=== PATIENT | female | born 1950 | race Caucasian/White ===

== ENCOUNTER 2017-02-15 19:44 | Inpatient (IN) | payer MEDICARE, MEDICAID ==
[~2017-02-15] VITALS: Ht 175.3 cm; Wt 65.7 kg
[2017-02-15] MEDS ORDERED: SOD CHLORIDE 0.9% 1,000 ML IV STA (21:06)
[2017-02-15] MEDS ORDERED: ONDANSETRON 4 MG INJ IV STA (21:06)
--- NOTE | 2017-02-15 21:09 | ERA ---
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 She reports having epigastric and chest pain and back pain during vomiting, but denies any pain in the absence of vomiting. She denies constipation or diarrhea. She denies fever. She denies dysuria. She denies headache.She states that she does not have complete kidney failure, but is on dialysis for kidney protection. Her last dialysis was 5 days ago. ROS All systems reviewed and are negative except as per history of present illness. Medications Home Meds Reported Medications Ferrous Sulfate (Iron) 325 Mg Capsule.er, 325 MG PO DAILY, CAP 02/15/17 Ondansetron Hcl* (Zofran*) 4 Mg Tablet, 4 MG PO Q6H Y for NAUSEA AND OR VOMITING , TAB 02/15/17 Tizanidine Hcl* (Tizanidine Hcl*) 4 Mg Capsule, 4 MG PO DAILY Y for SPASTICITY, CAP 02/15/17 Cinacalcet* (Sensipar*) 60 Mg Tablet, 60 MG PO DAILY, TAB 02/15/17 Risperidone* (Risperdal*) 0.25 Mg Tablet, 0.25 MG PO QHS, TAB 02/15/17 Sevelamer Carbonate* (Renvela*) 800 Mg Tablet, 0.8 GM PO WITH MEALS, TAB 02/15/17 Multivit/Ca Carb/B Cmplx/Fa* (Chrissy-Yvonne*) 1 Tab Tab, 1 TAB PO DAILY, TAB 02/15/17 Protein Supplement (Promod) 946 Ml Liquid, 30 ML PO TID 02/15/17 Folic Acid* (Folic Acid*) 1 Mg Tablet, 1 MG PO DAILY, TAB 02/15/17 Docusate Sodium* (Docusate Sodium*) 100 Mg Capsule, 100 MG PO QHS, #30 CAP 02/15/17 Aspirin* (Aspirin* EC) 81 Mg Tablet.dr, 81 MG PO DAILY, TAB 02/15/17 Acetaminophen* (Acetaminophen*) 650 Mg Tablet, 650 MG PO Q6H Y for PAIN, #30 TAB FOR TEMP MORE THAN 100 02/15/17 Allergies Allergies: Coded Allergies: No Known Allergy (Unverified , 02/15/17) PMhx/Soc Past medical history: Renal insufficiency, solitary kidney Past surgical history: Exploratory laparotomy at age 1 Social history: Denies tobacco, alcohol or illicit drugs. History of Surgery: Yes (dialysis shunt LUE, kidney surgery infancy) Anesthesia Reaction: No Hx Neurological Disorder: Yes (encephelopathy NOS) Hx Cardiac Disorders: Yes (HTN) Hx Psychiatric Problems: Yes (psychosis NOS, , ) Hx Alcohol Use: No Hx Substance Use: No Hx Tobacco Use: No Smoking Status: Unknown if ever smoked FmHx Family History: No coronary disease, No diabetes Physical Exam Vitals Vital Signs Date Time Temp Pulse Resp B/P Pulse Ox O2 Delivery O2 Flow Rate FiO2 02/15/17 20:18 98.6 106 20 134/71 99 Physical Exam Const: Alert, no acute distress Head: Atraumatic Eyes: Normal Conjunctiva, No pallor, no icterus ENT: Normal External Ears, Nose and Mouth. Mucous membranes moist Neck: Full range of motion..~ No meningismus. Resp: Clear to auscultation bilaterally, No wheezes, no rales Cardio: Tachycardia, regular rhythm, no murmurs Abd: Soft, non tender, non distended. Skin: No petechiae or rashes, Diminished skin turgor Back: No midline or flank tenderness Ext: No cyanosis, or edema Neur: Awake and alert, Cranial nerves II through XII intact bilaterally, strength and sensation full in 4 extremities. Psych: Normal Mood and Affect Result Diagram: 02/15/17 2100 02/15/17 2100 Results 24 hrs Laboratory Tests Test 02/15/17 21:00 02/15/17 21:18 White Blood Count 9.310^3/ul Red Blood Count 2.3910^6/ul Hemoglobin 8.2g/dl Hematocrit 25.3% Mean Corpuscular Volume 105.9fl Mean Corpuscular Hemoglobin 34.3pg Mean Corpuscular Hemoglobin Concent 32.4g/dl Red Cell Distribution Width 15.2% Platelet Count 52625^3/UL Mean Platelet Volume 12.1fl Neutrophils % 76.6% Lymphocytes % 16.2% Monocytes % 6.3% Eosinophils % 0.4% Basophils % 0.1% Nucleated Red Blood Cells % 0.0/100WBC Neutrophils # (Manual) 7.110^3/ul Lymphocytes # 1.510^3/ul Monocytes # 0.610^3/ul Eosinophils # 0.010^3/ul Basophils # 0.010^3/ul Nucleated Red Blood Cells # 0.010^3/ul Sodium Level 136mmol/L Potassium Level 5.5mmol/L Chloride Level 96mmol/L Carbon Dioxide Level 26mmol/L Anion Gap 20 Blood Urea Nitrogen 71mg/dl Creatinine 7.45mg/dl Glucose Level 93mg/dl Lactic Acid Level 2.1mmol/L Calcium Level 9.5mg/dl Total Bilirubin 0.3mg/dl Direct Bilirubin 0.00mg/dl Indirect Bilirubin 0.3mg/dl Aspartate Amino Transf (AST/SGOT) 27IU/L Alanine Aminotransferase (ALT/SGPT) 27IU/L Alkaline Phosphatase 772IU/L Troponin I 1.010ng/ml Total Protein 5.9g/dl Albumin 3.6g/dl Globulin 2.30g/dl Albumin/Globulin Ratio 1.56 Lipase 266U/L Urine Color YELLOW Urine Clarity SLIGHTLY CLOUDY Urine pH 9.0 Urine Specific [place] 1.008 Urine Ketones NEGATIVEmg/dL Urine Nitrite NEGATIVEmg/dL Urine Bilirubin NEGATIVEmg/dL Urine Urobilinogen NEGATIVEmg/dL Urine Leukocyte Esterase 3+Katelyn/ul Urine Microscopic RBC 4/HPF Urine Microscopic WBC 36/HPF Urine Squamous Epithelial Cells FEW/HPF Urine Bacteria FEW/HPF Urine Hemoglobin NEGATIVEmg/dL Urine Glucose NEGATIVEmg/dL Urine Total Protein 2+mg/dl Current Medications Medications (Trade) Dose Ordered Sig/Nayla Route PRN Reason Start Time Stop Time Status Last Admin Dose Admin Sodium Chloride (NS) 1,000 ml @ 1,000 mls/hr Q1H STAT IV 02/15/17 21:06 02/15/17 22:05 DC 02/15/17 21:31 Ondansetron HCl (Zofran Inj) 4 mg ONCE STAT IV 02/15/17 21:06 02/15/17 21:07 DC 02/15/17 21:31 Sodium Chloride 1110 ml 1,110 ml BOLUS OVER 2 HOURS STAT IV* 02/15/17 22:07 02/15/17 22:11 DC 02/15/17 22:54 Ceftriaxone Sodium (Rocephin) 50 ml @ 100 mls/hr ONCE ONCE IVPB 02/15/17 22:11 02/15/17 22:40 DC Aspirin (Aspirin) 300 mg ONCE ONCE MO 02/15/17 22:30 02/15/17 22:31 DC 02/15/17 22:53 Ondansetron HCl (Zofran Inj) 4 mg ER BRIDGE PRN IV NAUSEA AND/OR VOMITING 02/15/17 23:00 02/16/17 22:59 Acetaminophen (Tylenol Tab) 650 mg ER BRIDGE PRN PO MILD PAIN/FEVER 02/15/17 23:00 02/16/17 22:59 Procedures/MDM EKG read by me: Time 2143, rate 105 Rhythm: Sinus tachycardia [place]: Normal Intervals: Normal ST-T waves: Nonspecific STT wave changes in anterolateral leads Ectopy: No Q-waves: No Impression: Sinus tachycardia with nonspecific changes. MDM: Patient is a 66-year-old female with solitary kidney who presents to the ER with copious vomiting. She reports some epigastric and chest pain associated with vomiting, hurt his description of which sounds like esophageal irritation. She was given Zofran and IV fluids. Urinalysis was consistent with UTI. The patient has no fever or leukocytosis. She is on dialysis and has missed dialysis twice this week. She has mild hyperkalemia. Clinically she appears dehydrated. The patient has an elevated troponin and nonspecific changes on EKG. I suspect that the elevated troponin may be due to dehydration and renal impairment, but cannot exclude non-ST elevation [place]. The patient was given aspirin. She is given IV antibiotics and cultures were sent. She will be admitted to the hospital for further infectious and cardiac workup. She will need monitoring her potassium and may need inpatient dialysis. Departure Diagnosis: Primary Impression: Nausea and vomiting Qualified Code: R11.2 - Non-intractable vomiting with nausea, unspecified vomiting type Additional Impressions: Dehydration Complicated urinary tract infection Elevated troponin Condition: MARISOL Mchugh MD Feb 15, 2017 21:09
[2017-02-15] MEDS ORDERED: ASPI-664 PO (21:16)
[2017-02-15] MEDS ORDERED: ACET-2047 PO (21:16)
[2017-02-15] MEDS ORDERED: DOCU-159 PO (21:17)
[2017-02-15] MEDS ORDERED: FOLI-49 PO (21:17)
[2017-02-15] MEDS ORDERED: PROT946L PO (21:18)
[2017-02-15] MEDS ORDERED: NEPH PO (21:19)
[2017-02-15] MEDS ORDERED: SEVE800T7 PO (21:20)
[2017-02-15] MEDS ORDERED: RISP0.2553 PO (21:21)
[2017-02-15] MEDS ORDERED: CINA60TA PO (21:21)
[2017-02-15] MEDS ORDERED: TIZA4CAP6 PO (21:22)
[2017-02-15] MEDS ORDERED: ONDA4TAB8 PO (21:23)
[2017-02-15] MEDS ORDERED: FERR325C PO (21:25)
[2017-02-15 21:31] LABS: BASOPHILS % 0.1 % (0.0-2.0); EOSINOPHILS % 0.4 % (0.0-7.0); HEMATOCRIT 25.3 % (37.0-47.0); HEMOGLOBIN 8.2 g/dl (12.0-16.0); LYMPHOCYTES # 1.5 10^3/ul (0.8-2.9); LYMPHOCYTES % 16.2 % (15.0-51.0); MEAN CORPUSCULAR HEMOGLOBIN 34.3 pg (29.0-33.0); MEAN CORPUSCULAR HGB CONC 32.4 g/dl (32.0-37.0); MEAN CORPUSCULAR VOLUME 105.9 fl (82.0-101.0); MEAN PLATELET VOLUME 12.1 fl (7.4-10.4); MONOCYTE # 0.6 10^3/ul (0.3-0.9); MONOCYTES % 6.3 % (0.0-11.0); NEUTROPHILS % 76.6 % (39.0-77.0); PLATELET COUNT 185 10^3/UL (140-415); RED BLOOD COUNT 2.39 10^6/ul (4.20-5.40); RED CELL DISTRIBUTION WIDTH 15.2 % (11.5-14.5); WHITE BLOOD COUNT 9.3 10^3/ul (4.8-10.8)
[2017-02-15 21:52] LABS: ALBUMIN 3.6 g/dl (3.3-4.9); ALBUMIN/GLOBULIN RATIO 1.56; BILIRUBIN,INDIRECT 0.3 mg/dl (0-1.1); BILIRUBIN,TOTAL 0.3 mg/dl (0.2-1.3); CALCIUM 9.5 mg/dl (8.4-10.2); CREATININE 7.45 mg/dl (0.44-1.00); POTASSIUM 5.5 mmol/L (3.5-5.1); TOTAL PROTEIN 5.9 g/dl (6.1-8.1)
[2017-02-15 22:05] LABS: TROPONIN-I 1.01 ng/ml (0.00-0.12)
[2017-02-15 22:05] LABS: ADD UMIC YES; UR ASCORBIC ACID NEGATIVE (NEGATIVE); UR BACTERIA FEW /HPF (NONE SEEN); UR BILIRUBIN (Dip) NEGATIVE (NEGATIVE); UR BLOOD (Dip) NEGATIVE (NEGATIVE); UR CLARITY SLIGHTLY CLOUDY (CLEAR); UR COLOR YELLOW (YELLOW); UR GLUCOSE (Dip) NEGATIVE (NEGATIVE); UR KETONES (Dip) NEGATIVE (NEGATIVE); UR LEUKOCYTE ESTERASE (Dip) 3+ Leu/ul (NEGATIVE); UR NITRITE (Dip) NEGATIVE (NEGATIVE); UR RBC 4 /HPF (0-5); UR SPECIFIC GRAVITY (Dip) 1.008 (1.003-1.030); UR SQUAMOUS EPITHELIAL CELL FEW /HPF (FEW); UR TOTAL PROTEIN (Dip) 2+ mg/dl (NEGATIVE); UR UROBILINOGEN (Dip) NEGATIVE (NEGATIVE)
[2017-02-15] MEDS ORDERED: SODIUM CHLORIDE 0.9% 1L BAG IV* STA (22:07)
[2017-02-15] MEDS ORDERED: CEFTRIAXONE 1 GM/50 ML (PMX) 50 ML IVPB ONE (22:11)
[2017-02-15] MEDS ORDERED: ASPIRIN 300 MG SUPP PR ONE (22:30)
--- NOTE | 2017-02-15 22:32 | RADRPT ---
PROCEDURE: XR Chest. CLINICAL INDICATION: Pain. TECHNIQUE: Single frontal chest x-ray. COMPARISON: None. FINDINGS: The cardiomediastinal silhouette is unremarkable. There is no congestive heart failure.. No focal i nfiltrate is seen. There is no pleural effusion. There is no pneumothorax. Bones are osteopenic. There is a S-shaped scoliosis of the lower thoracic spine.. IMPRESSION: No CHF or acute infiltrate. RPTAT: HMVK .Gallo Raygoza MD, Date Time Electronically viewed and signed by .Gallo Raygoza MD, on 02/15/2017 22:31 .K/
[2017-02-15] MEDS ORDERED: ONDANSETRON 4 MG INJ IV PRN (23:00)
[2017-02-15] MEDS ORDERED: ACETAMINOPHEN 325 MG TAB PO PRN (23:00)
[2017-02-16] VITALS (34 sets, daily range): BP systolic 96–161; BP diastolic 42–82; PULSE 89–198; RESP 12–20; Ht 175.3 cm; Wt 65.7 kg
[2017-02-16] MEDS ORDERED: HYDROmorphONE 1 MG/ML SYG IV STA (00:25)
[2017-02-16] MEDS ORDERED: SOD CHLORIDE 0.9% 500 ML IV ONE (02:00)
[2017-02-16] MEDS ORDERED: morphine 2 MG INJ IV ONE (02:00)
[2017-02-16] MEDS ORDERED: DOCUSATE SODIUM 100 MG CAP PO PRN (02:30)
[2017-02-16] MEDS ORDERED: ACETAMINOPHEN 325 MG TAB PO PRN ×2 (02:30)
[2017-02-16] MEDS ORDERED: HEPARIN 25000 UNITS/250 ML 250 ML IV SCH (02:30)
[2017-02-16] MEDS ORDERED: NACL 0.9% 3 ML SYG IV SCH (02:30)
[2017-02-16] MEDS ORDERED: BISACODYL (EC) 5 MG TAB PO PRN (02:30)
[2017-02-16] MEDS ORDERED: ONDANSETRON 4 MG INJ IV PRN (02:30)
[2017-02-16] MEDS ORDERED: METOCLOPRAMIDE 10 MG INJ IV PRN (02:30)
[2017-02-16] MEDS ORDERED: HEPARIN 1000 UNITS/ML 10 ML INJ IV ONE (02:36)
--- NOTE | 2017-02-16 02:51 | RADRPT ---
PROCEDURE: US Abdomen (right upper quadrant). CLINICAL INDICATION: Pain. TECHNIQUE: Multiple real-time longitudinal and transverse images of the right upper quadrant of th e abdomen were acquired utilizing a curved array transducer. Images were reviewed on a high-resoluti on PACS workstation. COMPARISON: None FINDINGS: The liver is enlarged at 18.44 cm and echogenic.. There is no focal intrahepatic mass.. The gallbl adder is distended. There is no pericholecystic fluid or gallbladder wall thickening or gallstones. No intra or extrahepatic biliary dilatation is seen. The common bile duct measures 3.8 mm in maxim al dimension. Pancreas is obscured by bowel gas. No free fluid is identified. The right kidney was not visualized due to bowel IMPRESSION: 1. Distended/hydropic gallbladder. No gallstones, gallbladder wall thickening or pericholecystic fl uid to suggest acute cholecystitis. 2. Evidence for biliary obstruction. 3. Enlarged fatty liver. 4. Pancreas and right kidney not visualized due to bowel gas. RPTAT: HMVK .Gallo Raygoza MD, Date Time Electronically viewed and signed by .Gallo Raygoza MD, on 02/16/2017 02:51 .K/
[2017-02-16 03:57] LABS: ABNORMAL IP MESSAGE 1; HEMATOCRIT 24.3 % (37.0-47.0); HEMOGLOBIN 7.8 g/dl (12.0-16.0); MEAN CORPUSCULAR HEMOGLOBIN 34.1 pg (29.0-33.0); MEAN CORPUSCULAR HGB CONC 32.1 g/dl (32.0-37.0); MEAN CORPUSCULAR VOLUME 106.1 fl (82.0-101.0); MEAN PLATELET VOLUME 11.9 fl (7.4-10.4); PLATELET COUNT 171 10^3/UL (140-415); RED BLOOD COUNT 2.29 10^6/ul (4.20-5.40); RED CELL DISTRIBUTION WIDTH 15.3 % (11.5-14.5); WHITE BLOOD COUNT 9.4 10^3/ul (4.8-10.8)
[2017-02-16] MEDS ORDERED: morphine 2 MG INJ IV PRN (04:00)
[2017-02-16 04:03] LABS: POSITIVE DIFF @See below
[2017-02-16 04:10] LABS: INR 1.1; PROTIME 14.2 Sec (12.2-14.2); PT RATIO 1.1
[2017-02-16 04:11] LABS: PARTIAL THROMBOPLASTIN TIME 29.5 Sec (25.0-35.0)
[2017-02-16 04:22] LABS: CK-MB 3.95 ng/ml (0.0-2.4)
[2017-02-16 04:31] LABS: TROPONIN-I 0.892 ng/ml (0.00-0.12)
[2017-02-16] MEDS ORDERED: METOPROLOL 5 MG INJ IV ONE (05:00)
[2017-02-16] MEDS: PANTOPRAZOLE 40 MG INJ IV SCH (06:59)
[2017-02-16] MEDS: SEVELAMER CARBONATE 0.8 GM PKT PO SCH ×3 (07:55→17:13)
[2017-02-16] MEDS ORDERED: IODIXANOL LOCM 100 ML BTL ONE (08:20)
[2017-02-16] MEDS ORDERED: LIDOCAINE 1% (MDV) 20 ML INJ ONE (08:20)
[2017-02-16] MEDS ORDERED: HEPARIN 1000 UNITS/NS (A-LINE) 1,000 ML ONE (08:20)
[2017-02-16] MEDS: FERROUS SULFATE (EC) 325 MG TAB PO SCH (08:27)
[2017-02-16] MEDS: CINACALCET 30 MG TAB PO SCH (08:28)
[2017-02-16] MEDS: FOLIC ACID 1 MG TAB PO SCH (08:28)
[2017-02-16] MEDS: ASPIRIN (EC) 81 MG TAB PO SCH (08:28)
[2017-02-16] MEDS ORDERED: HEPARIN 1000 UNITS/ML 10 ML INJ IV PRN (08:30)
[2017-02-16] MEDS ORDERED: MIDAZOLAM 1 MG/ML 2 ML INJ ONE (08:43)
[2017-02-16] MEDS ORDERED: FENTAnyl 50 MCG/ML VIAL ONE (08:43)
[2017-02-16] MEDS ORDERED: ONDANSETRON 4 MG INJ ONE (08:44)
--- NOTE | 2017-02-16 08:53 | HP ---
Date/Time of Note Date/Time of Note DATE: 02/16/17 TIME: 08:40 Assessment/Plan VTE Prophylaxis VTE Prophylaxis Intervention: heparin Lines/Catheters IV Catheter Type (from Rust): Peripheral IV Assessment/Plan Chief Complaint/Hosp Course This is a 58-year-old female being admitted to the telemetry floor for: #1 NSTEMI: Patient presents with atypical symptoms of epigastric pain and she does have an elevated troponin which still could be secondary to her elevated creatinine based on her presentation at the current time I would like to treat with a heparin drip. Will trend cardiac enzymes. Will obtain echocardiogram. Will consult cardiology. Check lipid panel, thyroid #2 Renal failure, stage IV-V nonoliguric: Patient has a history of a solitary kidney. She is apparently on dialysis for renal protection as per her. She does still produce urine. At the current time will continue to monitor renal function and schedule her for dialysis tomorrow as her last dialysis was approximately 5 days ago. She is currently not vomiting and she is not confused potassium is 5 and so I believe at this time we do not have to do emergent dialysis. Resume home medications at the discretion of nephrology. #3 lactic acidosis: Likely multifactorial secondary to her underlying cardiac and renal issues and urinary tract infection. Will continue to monitor kidney function will also provide patient with some normal saline IV fluid hydration as she is nonoliguric. #4 urinary tract infection: We will treat with ceftriaxone IV and check urine culture. #5 Macrocytic anemia: Likely multifactorial secondary to renal disease. Will also check folate and B12, defer further management to renal. Hemoglobin closely as patient will be on heparin for #1. #6 elevated alkaline phosphatase: Patient alk phos levels in 700 which appears to be unusually high for acute phase reactant. Will obtain a right upper quadrant ultrasound and a GGT to assess for any biliary disease, otherwise this could be secondary to possible underlying bone disease.. 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 She reports having epigastric and chest pain and back pain during vomiting, but denies any pain in the absence of vomiting. She denies constipation or diarrhea. She denies fever. She denies dysuria. She denies headache.She states that she does not have complete kidney failure, but is on dialysis for kidney protection. Her last dialysis was 5 days ago. Allergies: NKDA Medications: See AUG ROS Const: As per HPI negative for fever, chills, weight gain or weight loss, fatigue, or diaphoresis Eyes : No pain discharge or redness or change in visual acuity ENT: No pain, sore throat, congestion, congestion, dysphagia or discharge Respiratory: No shortness of breath, cough, sputum, wheezing, or pleuritic pain Cardiovascular: No chest pain, palpitation, PND, or edema GI : as per HPI Genitourinary: No dysuria, hematuria, flank pain , discharge or CVA tenderness Musculoskeletal: No joint pain, back pain, neck pain, restricted range of motion in neck or joints Skin: No rash, bruising or hives Neuro: No headache, dizziness, syncope, seizure, focal weakness Endocrine: No polyuria, polydipsia, temperature intolerance Psych: No hallucination, depression, anxiety or suicidal ideation PMH/Family/Social Past Medical History Solitary kidney on hemodialysis, sciatica Past Surgical History Left AV fistula Family History Significant Family History: diabetes Social History Alcohol Use: none Smoking Status: Never smoker Drug Use: none Exam/Review of Systems Vital Signs Vitals Vital Signs Date Time Temp Pulse Resp B/P Pulse Ox O2 Delivery O2 Flow Rate FiO2 02/16/17 07:51 98.2 102 17 127/61 96 02/16/17 00:27 Nasal Cannula 02/15/17 22:30 2.0 Intake and Output 02/15/17 02/15/17 02/16/17 15:00 23:00 07:00 Intake Total 8 ml Balance 8 ml Exam Exam General: Patient lying in bed in mild pain HEENT: Atraumatic, normocephalic. The pupils are equal, round and reactive. Extraocular motor are intact Neck: Supple with full range of motion. No rigidity or meningismus Chest: Nontender Lungs: Clear to auscultation bilaterally no crackles rales or wheezing Heart: Normal S1-S2, Regular rhythm and rate. No overt murmur appreciated Abdomen: Soft, tenderness to palpation over the epigastric region and upper abdominal quadrants Extremities: Normal to inspection, no edema no cyanosis Neurologic: Normal mental status, speech normal, cranial nerves II through XII are intact, motor and sensory are intact, no focal weakness Additional Comments PROCEDURE: XR Chest. CLINICAL INDICATION: Pain. TECHNIQUE: Single frontal chest x-ray. COMPARISON: None. FINDINGS: The cardiomediastinal silhouette is unremarkable. There is no congestive heart failure.. No focal infiltrate is seen. There is no pleural effusion. There is no pneumothorax. Bones are osteopenic. There is a S-shaped scoliosis of the lower thoracic spine.. IMPRESSION: No CHF or acute infiltrate. RPTAT: HMVK .Gallo Raygoza MD, MD Date Time Electronically viewed and signed by .Gallo Raygoza MD, MD on 02/15/2017 22:31 .K/ CC: MARISOL DUBOIS MD EKG Rhythm: Sinus tachycardia [place]: Normal Intervals: Normal ST-T waves: Nonspecific STT wave changes in anterolateral leads Ectopy: No Q-waves: No Impression: Sinus tachycardia with nonspecific changes. As per ED physician recommendation Labs Result Diagram: 02/16/17 0325 02/15/17 2100 Medications Medications Current Medications Ondansetron HCl (Zofran Inj) 4 mg Q6H PRN IV NAUSEA AND/OR VOMITING; Start 02/16 at 02:30 Metoclopramide HCl (Reglan) 10 mg Q6H PRN IV NAUSEA AND/OR VOMITING; Start 02/16 at 02:30 Acetaminophen (Tylenol Tab) 650 mg Q6H PRN PO PAIN LEVEL 1-3 OR FEVER; Start at 02:30 Docusate Sodium (Colace) 100 mg Q12H PRN PO CONSTIPATION; Start 02/16/17 at 02: 30 Bisacodyl (Dulcolax) 5 mg DAILY PRN PO CONSTIPATION; Start 02/16/17 at 02:30 Pantoprazole (Protonix Iv) 40 mg DAILY@06 IV Last administered on 9/8/17at 06: 59; Admin Dose 40 MG; Start 02/16/17 at 06:00 Acetaminophen (Tylenol Tab) 650 mg Q6H PRN PO PAIN; Start 02/16/17 at 02:30 Aspirin (Halfprin) 81 mg DAILY PO ; Start 02/16/17 at 09:00 Cinacalcet (Sensipar) 60 mg DAILY PO ; Start 02/16/17 at 09:00 Folic Acid (Folic Acid) 1 mg DAILY PO ; Start 02/16/17 at 09:00 Risperidone (Risperdal) 0.25 mg QHS PO ; Start 02/16/17 at 21:00 Ferrous Sulfate (Ferrous Sulfate (Ec)) 325 mg DAILY PO ; Start 02/16/17 at 09:00 Morphine Sulfate (morphine) 2 mg Q4H PRN IV PAIN Last administered on 02/16/17 04:09; Admin Dose 2 MG; Start 02/16/17 at 04:00 SAMANTHA ANTONY Feb 16, 2017 08:53
[2017-02-16] MEDS ORDERED: NON-FORMULARY/PATIENT OWN MED (Protein Supplement (Promod) 30 ML) PO SCH (09:00)
--- NOTE | 2017-02-16 09:26 | OPR ---
Date/Time of Note Date/Time of Note DATE: 02/16/17 TIME: 09:22 Operative Report Procedure Date: Feb 16, 2017 Preoperative Diagnosis Myocardial infarction Chest pain Postoperative Diagnosis Minimal nonobstructive coronary artery disease Operation Performed Left heart catheterization Right and left coronary angiogram Interpretation and supervision of right left coronary angiogram Left ventricular pressure measurements Conscious sedation Right femoral artery approach Surgeon: Gallo Espinoza DO Anesthesia Type: other (Conscious sedation) Estimated Blood Loss: minimal Complications: no Pt Condition Post Procedure: stable Disposition: PACU Indications This is a 66-year-old female who presents with elevated troponin, wall motion abnormalities on echocardiogram and chest discomfort Operative\Procedure Findings Hemodynamics Left ventricular pressure 132/-19 with EDP of 10 Aortic pressure 124/62 Coronary anatomy Left main is a large caliber vessel with no significant disease LAD is a medium caliber vessel with mid 10% stenosis Circumflex is a medium caliber vessel with mid 10% stenosis RCA is medium to large caliber vessel and dominant with distal 10% stenosis Procedure Description The patient was brought to the [facility] after informed consent. Patient was prepped and draped as per protocol. Right femoral artery access was obtained using a micropuncture kit and a 5 Wallisian sheath was placed. A 5 Wallisian JL4 diagnostic catheter was used to engage left main and angiogram was performed and then a 5 Wallisian JR4 diagnostic catheter was used to engage the RCA and angiogram was performed. We next entered the left ventricle and pressure measures were obtained as well as pullback. There was no immediate complications. She is planned to be pulled with manual hemostasis. Gallo Espinoza DO Feb 16, 2017 09:26
[2017-02-16] MEDS ORDERED: NITROGLYCERIN (SL) 0.4 MG TAB SL PRN (09:30)
[2017-02-16] MEDS: METOPROLOL 25 MG TAB PO SCH ×2 (09:30→23:03)
--- NOTE | 2017-02-16 09:32 | CONS ---
Date/Time of Note Date/Time of Note DATE: 02/16/17 TIME: 09:26 Assessment/Plan Assessment/Plan Additional Assessment/Plan Non-ST elevation [place], type II Minimal nonobstructive coronary artery disease cardiac catheterization 02/16/2017 Preserved ejection fraction End-stage renal disease on hemodialysis SIRS Anemia -Patient with symptoms of chest pain, abdominal pain and shortness of breath. Troponins were initially elevated and trending down. Bedside echocardiogram done demonstrated preserved ejection fraction but there were segmental wall motion abnormalities in distal anterior and apical apical segments. Given her symptoms, elevated troponins and echo findings, patient underwent cardiac catheterization this morning. Cardiac cath demonstrated no evidence of obstructive coronary artery disease. Myocardial infarction is likely type II, secondary to SIRS. Patient does complain of abdominal pain and there is concern for possible gallbladder etiology as a possible source of her symptoms. Would recommend GI and possibly surgical evaluation, continue statin therapy and beta-torsten as tolerated. Watch hemoglobin closely for need of transfusion Consultation Date/Type/Reason Admit Date/Time Feb 15, 2017 at 22:49 Type of Consultation: cv Reason for Consultation Elevated troponin chest pain Hx of Present Illness This is a 66-year-old female with past medical history of end-stage renal disease on hemodialysis who presents with symptoms of chest pain, abdominal pain and back pain. Patient states for the past 2-3 days, she has been feeling overall not well with nausea, abdominal pain and chest pain. She denies fevers but does complain of chills. Yesterday, patient was vomiting multiple times and unclear if chest pain occurred before vomiting or after vomiting. She also was complaining of shortness of breath as well. She has missed her hemodialysis sessions since this past Sunday because overall not feeling well. Because of the worsening symptoms, she came to the emergency room for evaluation and care. At the current time, she complains of mild chest discomfort and abdominal pain. She denies shortness of breath. 12 point review of systems was performed with all pertinent positives and negatives mentioned above and all else is negative Past Medical History End-stage renal disease on hemodialysis Past Surgical History Past Surgical Hx: other (Hemodialysis fistula, dominant surgery) Family History Significant Family History: no pertinent family hx Social History Alcohol Use: none Smoking Status: Never smoker Drug Use: none Other Social History Lives in assisted living Exam/Review of Systems Vital Signs Vitals Vital Signs Date Time Temp Pulse Resp B/P Pulse Ox O2 Delivery O2 Flow Rate FiO2 02/16/17 08:48 104 02/16/17 07:51 98.2 17 127/61 96 02/16/17 00:27 Nasal Cannula 02/15/17 22:30 2.0 Intake and Output 02/15/17 02/15/17 02/16/17 15:00 23:00 07:00 Intake Total 8 ml Balance 8 ml Exam Appears mildly uncomfortable Constitutional: alert, oriented Head: normocephalic Respiratory: clear to auscultation, normal air movement Cardiovascular: other (s1 S2 heard), regular rate and rhythm (Tachycardic) Gastrointestinal: bowel sounds, soft, tender (With palpation epigastric and right upper quadrant) Extremities: edema (Trace) Results Result Diagram: 02/16/17 0325 02/15/17 2100 Results 24 hrs Laboratory Tests Test 02/15/17 21:00 02/15/17 21:18 02/16/17 00:41 02/16/17 03:25 White Blood Count 9.3 9.4 Red Blood Count 2.39 L 2.29 L Hemoglobin 8.2 L 7.8 L Hematocrit 25.3 L 24.3 L Mean Corpuscular Volume 105.9 H 106.1 H Mean Corpuscular Hemoglobin 34.3 H 34.1 H Mean Corpuscular Hemoglobin Concent 32.4 32.1 Red Cell Distribution Width 15.2 H 15.3 H Platelet Count 185 171 Mean Platelet Volume 12.1 H 11.9 H Neutrophils % 76.6 Lymphocytes % 16.2 Monocytes % 6.3 Eosinophils % 0.4 Basophils % 0.1 Nucleated Red Blood Cells % 0.0 0.0 Neutrophils # (Manual) 7.1 8.5 H Lymphocytes # 1.5 Monocytes # 0.6 Eosinophils # 0.0 Basophils # 0.0 Nucleated Red Blood Cells # 0.0 Sodium Level 136 Potassium Level 5.5 H Chloride Level 96 L Carbon Dioxide Level 26 Anion Gap 20 H Blood Urea Nitrogen 71 H Creatinine 7.45 H Glucose Level 93 Lactic Acid Level 2.1 H 1.0 1.5 Calcium Level 9.5 Total Bilirubin 0.3 Direct Bilirubin 0.00 Indirect Bilirubin 0.3 Aspartate Amino Transf (AST/SGOT) 27 Alanine Aminotransferase (ALT/SGPT) 27 Alkaline Phosphatase 772 H Troponin I 1.010 *H 0.892 *H Total Protein 5.9 L Albumin 3.6 Globulin 2.30 Albumin/Globulin Ratio 1.56 Lipase 266 Urine Color YELLOW Urine Clarity SLIGHTLY CLOUDY A Urine pH 9.0 Urine Specific [place] 1.008 Urine Ketones NEGATIVE Urine Nitrite NEGATIVE Urine Bilirubin NEGATIVE Urine Urobilinogen NEGATIVE Urine Leukocyte Esterase 3+ H Urine Microscopic RBC 4 Urine Microscopic WBC 36 H Urine Squamous Epithelial Cells FEW Urine Bacteria FEW A Urine Hemoglobin NEGATIVE Urine Glucose NEGATIVE Urine Total Protein 2+ H Prothrombin Time 14.2 Prothrombin Time Ratio 1.1 INR International Normalized Ratio 1.10 Activated Partial Thromboplast Time 29.5 Gamma Glutamyl Transpeptidase < 10 Creatine Kinase 183 Creatine Kinase Index 2.2 Creatinine Kinase MB (Mass) 3.95 H Medications Medications Current Medications Ondansetron HCl (Zofran Inj) 4 mg Q6H PRN IV NAUSEA AND/OR VOMITING; Start 02/16 at 02:30 Metoclopramide HCl (Reglan) 10 mg Q6H PRN IV NAUSEA AND/OR VOMITING; Start 02/16 at 02:30 Acetaminophen (Tylenol Tab) 650 mg Q6H PRN PO PAIN LEVEL 1-3 OR FEVER; Start at 02:30 Docusate Sodium (Colace) 100 mg Q12H PRN PO CONSTIPATION; Start 02/16/17 at 02: 30 Bisacodyl (Dulcolax) 5 mg DAILY PRN PO CONSTIPATION; Start 02/16/17 at 02:30 Pantoprazole (Protonix Iv) 40 mg DAILY@06 IV Last administered on 02/16/17t 06: 59; Admin Dose 40 MG; Start 02/16/17 at 06:00 Acetaminophen (Tylenol Tab) 650 mg Q6H PRN PO PAIN; Start 02/16/17 at 02:30 Aspirin (Halfprin) 81 mg DAILY PO ; Start 02/16/17 at 09:00 Cinacalcet (Sensipar) 60 mg DAILY PO ; Start 02/16/17 at 09:00 Folic Acid (Folic Acid) 1 mg DAILY PO ; Start 02/16/17 at 09:00 Risperidone (Risperdal) 0.25 mg QHS PO ; Start 02/16/17 at 21:00 Ferrous Sulfate (Ferrous Sulfate (Ec)) 325 mg DAILY PO ; Start 02/16/17 at 09:00 Morphine Sulfate 2 mg 2 mg Q4H PRN IV PAIN Last administered on 02/16/17t 04:09 ; Admin Dose 2 MG; Start 02/16/17 at 04:00 Ceftriaxone Sodium (Rocephin) 50 ml @ 100 mls/hr Q24H IVPB ; Start 02/16/17 at 09:00 Metoprolol Tartrate (Lopressor) 25 mg BID PO ; Start 02/16/17 at 09:30 Clonidine (Catapres) 0.1 mg Q6H PRN PO SBP > 160; Start 02/16/17 at 09:30 Atorvastatin Calcium (Lipitor) 20 mg HS PO ; Start 02/16/17 at 21:00 Nitroglycerin (Nitroglycerin (Sl Tab) 0.4 Mg) 1 tab Q5M PRN SL ANGINA; Start at 09:30 Procedures Procedures ECG demonstrates sinus tachycardia 112 bpm, lateral and inferior T-wave abnormalities Gallo Espinoza DO Feb 16, 2017 09:32
[2017-02-16 09:40] LABS: ANISOCYTOSIS 1+ (0-0); BASOPHILS % (M) 1 % (0-2); MICROCYTOSIS 1+ (0-0); MONOCYTES % (M) 12 % (0-11); PLATELET ESTIMATE NORMAL; POLYCHROMASIA 3+ (0-0)
--- NOTE | 2017-02-16 10:20 | PN ---
Date/Time of Note Date/Time of Note DATE: 02/16/17 TIME: 10:14 Assessment/Plan VTE Prophylaxis VTE Prophylaxis Intervention: heparin Lines/Catheters IV Catheter Type (from Nrsg): Peripheral IV Assessment/Plan Assessment/Plan 1. Chest pain/epigastric pain with elevated troponin: 2D echo with wall motion abnormalities -She is status post cardiac cath this morning was clean coronaries -Abdominal ultrasound with biliary obstruction per radiology. She also has severely elevated alk phos. will order MRCP, will obtain a GI consult and follow -up GGT to see if elevated alk phos is secondary to liver etiology -Continue pain management 2. Epigastric pain with elevated alk phos -See #1 3. ESRD on HD -Management per nephrology 4. UTI -Continue antibiotic -Follow-up culture results 5. Hypertension -Adjust antihypertensives as needed 6. Microcytic anemia -Follow-up Vit B12, folate and iron profile Subjective 24 Hr Interval Summary Free Text/Dictation Complaining of epigastric and chest pain. Exam/Review of Systems Vital Signs Vitals Vital Signs Date Time Temp Pulse Resp B/P Pulse Ox O2 Delivery O2 Flow Rate FiO2 02/16/17 09:46 98.1 98 16 120/56 95 Room Air 02/15/17 22:30 2.0 Intake and Output 02/15/17 02/15/17 02/16/17 15:00 23:00 07:00 Intake Total 8 ml Balance 8 ml Exam Constitutional: alert, oriented Head: atraumatic, normocephalic Respiratory: clear to auscultation, normal air movement Cardiovascular: other (Tachycardic with regular rhythm) Gastrointestinal: soft, tender Extremities: normal pulses Results Result Diagram: 02/16/17 0325 02/15/17 2100 Results 24 hrs Laboratory Tests Test 02/15/17 21:00 02/15/17 21:18 02/16/17 00:41 02/16/17 03:25 White Blood Count 9.3 9.4 Red Blood Count 2.39 L 2.29 L Hemoglobin 8.2 L 7.8 L Hematocrit 25.3 L 24.3 L Mean Corpuscular Volume 105.9 H 106.1 H Mean Corpuscular Hemoglobin 34.3 H 34.1 H Mean Corpuscular Hemoglobin Concent 32.4 32.1 Red Cell Distribution Width 15.2 H 15.3 H Platelet Count 185 171 Mean Platelet Volume 12.1 H 11.9 H Neutrophils % 76.6 Lymphocytes % 16.2 Monocytes % 6.3 Eosinophils % 0.4 Basophils % 0.1 Nucleated Red Blood Cells % 0.0 0.0 Neutrophils # (Manual) 7.1 4.7 Lymphocytes # 1.5 Monocytes # 0.6 Eosinophils # 0.0 Basophils # 0.0 Nucleated Red Blood Cells # 0.0 Sodium Level 136 Potassium Level 5.5 H Chloride Level 96 L Carbon Dioxide Level 26 Anion Gap 20 H Blood Urea Nitrogen 71 H Creatinine 7.45 H Glucose Level 93 Lactic Acid Level 2.1 H 1.0 1.5 Calcium Level 9.5 Total Bilirubin 0.3 Direct Bilirubin 0.00 Indirect Bilirubin 0.3 Aspartate Amino Transf (AST/SGOT) 27 Alanine Aminotransferase (ALT/SGPT) 27 Alkaline Phosphatase 772 H Troponin I 1.010 *H 0.892 *H Total Protein 5.9 L Albumin 3.6 Globulin 2.30 Albumin/Globulin Ratio 1.56 Lipase 266 Urine Color YELLOW Urine Clarity SLIGHTLY CLOUDY A Urine pH 9.0 Urine Specific [place] 1.008 Urine Ketones NEGATIVE Urine Nitrite NEGATIVE Urine Bilirubin NEGATIVE Urine Urobilinogen NEGATIVE Urine Leukocyte Esterase 3+ H Urine Microscopic RBC 4 Urine Microscopic WBC 36 H Urine Squamous Epithelial Cells FEW Urine Bacteria FEW A Urine Hemoglobin NEGATIVE Urine Glucose NEGATIVE Urine Total Protein 2+ H Segmented Neutrophils % (Manual) 50 Band Neutrophils % (Manual) 1 Lymphocytes % (Manual) 37 Monocytes % (Manual) 12 H Basophils % (Manual) 1 Band Neutrophils # 0.0 Absolute Lymphocytes (Manual) 3.4 H Absolute Monocytes (Manual) 1.1 H Basophils # (Manual) 0.0 Platelet Estimate NORMAL Polychromasia 3+ Anisocytosis 1+ Microcytosis 1+ Prothrombin Time 14.2 Prothrombin Time Ratio 1.1 INR International Normalized Ratio 1.10 Activated Partial Thromboplast Time 29.5 Gamma Glutamyl Transpeptidase < 10 Creatine Kinase 183 Creatine Kinase Index 2.2 Creatinine Kinase MB (Mass) 3.95 H Medications Medications Current Medications Ondansetron HCl (Zofran Inj) 4 mg Q6H PRN IV NAUSEA AND/OR VOMITING; Start 02/16 at 02:30 Metoclopramide HCl (Reglan) 10 mg Q6H PRN IV NAUSEA AND/OR VOMITING; Start 02/16 at 02:30 Acetaminophen (Tylenol Tab) 650 mg Q6H PRN PO PAIN LEVEL 1-3 OR FEVER; Start at 02:30 Docusate Sodium (Colace) 100 mg Q12H PRN PO CONSTIPATION; Start 02/16/17 at 02: 30 Bisacodyl (Dulcolax) 5 mg DAILY PRN PO CONSTIPATION; Start 02/16/17 at 02:30 Pantoprazole (Protonix Iv) 40 mg DAILY@06 IV Last administered on 02/16/17 06: 59; Admin Dose 40 MG; Start 02/16/17 at 06:00 Acetaminophen (Tylenol Tab) 650 mg Q6H PRN PO PAIN; Start 02/16/17 at 02:30 Aspirin (Halfprin) 81 mg DAILY PO ; Start 02/16/17 at 09:00 Cinacalcet (Sensipar) 60 mg DAILY PO ; Start 02/16/17 at 09:00 Folic Acid (Folic Acid) 1 mg DAILY PO ; Start 02/16/17 at 09:00 Risperidone (Risperdal) 0.25 mg QHS PO ; Start 02/16/17 at 21:00 Ferrous Sulfate (Ferrous Sulfate (Ec)) 325 mg DAILY PO ; Start 02/16/17 at 09:00 Morphine Sulfate 2 mg 2 mg Q4H PRN IV PAIN Last administered on 02/16/17 04:09 ; Admin Dose 2 MG; Start 02/16/17 at 04:00 Ceftriaxone Sodium (Rocephin) 50 ml @ 100 mls/hr Q24H IVPB ; Start 02/16/17 at 09:00 Metoprolol Tartrate (Lopressor) 25 mg BID PO ; Start 02/16/17 at 09:30 Clonidine (Catapres) 0.1 mg Q6H PRN PO SBP > 160; Start 02/16/17 at 09:30 Atorvastatin Calcium (Lipitor) 20 mg HS PO ; Start 02/16/17 at 21:00 Nitroglycerin (Nitroglycerin (Sl Tab) 0.4 Mg) 1 tab Q5M PRN SL ANGINA; Start at 09:30 AGUILAR THOMASON MD Feb 16, 2017 10:20
--- NOTE | 2017-02-16 13:17 | RADRPT ---
Echocardiogram Report Patient Name: GIANA ROTHMAN Gender: Female Date: 1950 Study Date: 16-Feb-2017 Coal Screener: Damon Hinojosa [facility] Location: [id number] Ref. Physician: SAMANTHA ANTONY Quality: Good Procedures: Transthoracic echocardiogram with complete 2D, M-Mode, and doppler examination. Indications: NSTEMI. 2D/M Mode Doppler Measurement Value Normal Ranges Measurement Value Normal Ranges LVIDd 2D 4.8 3.5 - 5.6 cm AV Mean Kenneth 1.5 m/sec LVIDs 2D 3.5 2.1 - 4.1 cm AV Mean PG 10.0 mmHg LVPWd 2D 1.0 0.6 - 1.1 cm AV Peak Kenneth 2.2 m/sec IVSd 2D 0.9 0.6 - 1.1 cm AV Peak PG 19.3 mmHg AoR Diam 2D 3.0 2.0 - 3.7 cm AV VTI 40.1 cm EDV 2D 109.2 cm3 LVOT Mean Kenneth 0.9 m/sec ESV 2D 42.7 cm3 LVOT Mean PG 4.2 mmHg LA Dimen 2D 2.7 2.3 - 4.0 cm LVOT Peak Kenneth 1.5 m/sec LVOT Peak PG 8.7 mmHg LVOT VTI 27.2 cm MV E Peak Kenneth 0.7 m/sec MV A Peak Kenneth 1.0 m/sec MV E/A 0.7 MV Decel Time 103 msec MV Decel Winn 7 MV E/A 0.7 TR Peak Kenneth 2.3 m/sec TR Peak PG 21.1 mmHg RVSP 24.0 mmHg Findings Left Ventricle: Normal left ventricular systolic function. Normal left ventricular cavity size. Normal left ventricular wall thickness. Ejection fraction is visually estimated at 55 %. Tissue Doppler/Mitral Doppler indices are consistent with impaired relaxation (Stage I diastolic dysfunction). These segments of the LV are hypokinetic apex and apical anterior segment. Right Ventricle: Normal right ventricular size. Normal right ventricular systolic function. Left Atrium: The left atrium is normal in size. Right Atrium: The right atrium is normal in size. Mitral Valve: Mitral valve leaflets appear mildly thickened. Mild mitral annular calcification. Trace mitral regurgitation. Aortic Valve: Aortic valve Max velocity 2.20 m/sec. Max PG 19.30 mmHg. Mean PG 10.00 mmHg. Aortic sclerosis without stenosis. No aortic regurgitation. Tricuspid Valve: Normal appearance of the tricuspid valve. Estimated peak PA systolic pressure 24 mmHg. There is trace tricuspid regurgitation. Pulmonic Valve: Normal pulmonic valve appearance. Pericardium: Normal pericardium with no significant pericardial effusion. Aorta: Normal aortic root. IVC: Normal size and normal respiratory collapse consistent with normal right atrial pressure. Conclusions 1.Normal left ventricular systolic function. Normal left ventricular cavity size. Normal left ventricular wall thickness. Ejection fraction is visually estimated at 55 %. Tissue Doppler/Mitral Doppler indices are consistent with impaired relaxation (Stage I diastolic dysfunction). These segments of the LV are hypokinetic apex and apical anterior segment. 2.Normal right ventricular size. Normal right ventricular systolic function. 3.The left atrium is normal in size. 4.The right atrium is normal in size. 5.No significant valvular stenosis or regurgitation seen. 6.Normal pericardium with no significant pericardial effusion. Electronically Signed By: Gallo Espinoza 16-Feb-2017 13:16:51 -0700 Patient Name: GIANA ROTHMAN Study Date: 16-Feb-2017 [id number]
[2017-02-16] MEDS: CEFTRIAXONE 1 GM/50 ML (PMX) 50 ML IVPB SCH (13:50)
[2017-02-16 15:09] LABS: HEMATOCRIT 21.6 % (37.0-47.0)
[2017-02-16 15:15] LABS: HEMOGLOBIN 6.5 g/dl (12.0-16.0)
[2017-02-16 15:36] LABS: ALBUMIN 3.3 g/dl (3.3-4.9); ALBUMIN/GLOBULIN RATIO 1.26; BILIRUBIN,INDIRECT 0.1 mg/dl (0-1.1); BILIRUBIN,TOTAL 0.1 mg/dl (0.2-1.3); CALCIUM 9.5 mg/dl (8.4-10.2); CHOL/HDL RATIO 1.7 RATIO; CREATININE 6.94 mg/dl (0.44-1.00); MAGNESIUM 2.2 mg/dl (1.7-2.5); POTASSIUM 5.6 mmol/L (3.5-5.1); TOTAL PROTEIN 5.9 g/dl (6.1-8.1)
[2017-02-16 15:49] LABS: CK-MB 3.06 ng/ml (0.0-2.4)
[2017-02-16 15:54] LABS: TROPONIN-I 0.514 ng/ml (0.00-0.12)
[2017-02-16 16:39] LABS: THYROID STIMULATING HORMONE 2.65 MIU/L (0.465-4.680)
[2017-02-16 17:04] LABS: FOLATE > 20.0 ng/ml (2.8-20.0)
[2017-02-16 20:20] LABS: HEMATOCRIT 30.7 % (37.0-47.0); HEMOGLOBIN 10.1 g/dl (12.0-16.0)
[2017-02-16] MEDS: ATORVASTATIN 20 MG TAB PO SCH (23:03)
[2017-02-16] MEDS: RISPERIDONE 0.25 MG TAB PO SCH (23:03)
[2017-02-17] VITALS (16 sets, daily range): BP systolic 104–120; BP diastolic 42–59; PULSE 61–97; RESP 16–18
[2017-02-17 01:05] LABS: HEMATOCRIT 26.7 % (37.0-47.0); HEMOGLOBIN 9.1 g/dl (12.0-16.0)
--- NOTE | 2017-02-17 01:56 | RADRPT ---
PROCEDURE: MRCP. CLINICAL INDICATION: 66 years of age, female. Concern for biliary obstruction on ultrasound. Vomit ing and abdominal pain. TECHNIQUE: An MRCP was performed without intravenous contrast. Axial and coronal T2, axial T2 with fat saturation, and coronal T2 3D RST images were obtained. 3-D coronal rotating MIP images of the biliary tree were also generated. COMPARISON: Right upper quadrant ultrasound February 16, 2017 FINDINGS: Gall Bladder: The gallbladder is moderately distended and measures 4.7 x 10 cm. Negative for evidenc e of calculi or wall thickening. Bile ducts: Negative for intrahepatic or extrahepatic biliary duct dilatation. Common bile duct vashti ures 0.4 cm and tapers normally to the ampulla. No filling defects are identified. There is a 3.6 cm gas-filled periampullary diverticulum Pancreatic duct: Pancreatic duct is normal in caliber and configuration. Negative for divisum. Pancreas: Pancreas is atrophic. There is a 0.6 cm cyst in the pancreatic tail. Limited imaging of the lung bases, liver and spleen is unremarkable. Adrenal glands are unremarkable . Right kidney is not well visualized and is likely either very atrophic or hypoplastic. There is mi ld left hydronephrosis that is incompletely evaluated. The urinary bladder is moderately full. Bowel loops are decompressed. No free fluid is identified. There are degenerative changes in the spine with a curvature convex left. IMPRESSION: Distended gallbladder measuring 10 cm may indicate gallbladder hydrops. Negative for evidence of jarrod culi or gallbladder wall inflammation. Negative for evidence of biliary obstruction. Negative for dilatation of intrahepatic or extrahepati c bile ducts. Very small right kidney is either hypoplastic or atrophic. Mild left hydronephrosis is incompletely evaluated. RPTAT: HCTS Physician Grecia Date Time Electronically viewed and signed by Physician Grecia on 02/17/2017 01:55 /
[2017-02-17] MEDS: PANTOPRAZOLE 40 MG INJ IV SCH (06:38)
[2017-02-17 07:11] LABS: HEMATOCRIT 27.7 % (37.0-47.0); HEMOGLOBIN 8.9 g/dl (12.0-16.0)
[2017-02-17 07:31] LABS: IRON 59 ug/dl (35-150)
[2017-02-17 07:40] LABS: TOTAL IRON BINDING CAPACITY 200 ug/dl (241-421)
[2017-02-17 07:42] LABS: CALCIUM 9.3 mg/dl (8.4-10.2); CREATININE 3.19 mg/dl (0.44-1.00); POTASSIUM 3.9 mmol/L (3.5-5.1)
[2017-02-17] MEDS ORDERED: EPOETIN 4000 UNITS/1 ML INJ (ESRD) SC SCH (08:30)
[2017-02-17] MEDS: METOPROLOL 25 MG TAB PO SCH ×2 (09:00→20:41)
[2017-02-17] MEDS: CEFTRIAXONE 1 GM/50 ML (PMX) 50 ML IVPB SCH (09:19)
[2017-02-17] MEDS: SEVELAMER CARBONATE 0.8 GM PKT PO SCH ×3 (09:19→17:55)
[2017-02-17] MEDS: CINACALCET 30 MG TAB PO SCH (09:20)
[2017-02-17] MEDS: FOLIC ACID 1 MG TAB PO SCH (09:21)
[2017-02-17] MEDS: ASPIRIN (EC) 81 MG TAB PO SCH (09:21)
[2017-02-17] MEDS: FERROUS SULFATE (EC) 325 MG TAB PO SCH (09:22)
--- NOTE | 2017-02-17 10:16 | PN ---
Date/Time of Note Date/Time of Note DATE: 02/17/17 TIME: 10:15 Assessment/Plan VTE Prophylaxis VTE Prophylaxis Intervention: SCD's Lines/Catheters IV Catheter Type (from Nrs): Saline Lock Assessment/Plan Assessment/Plan Non-ST elevation [place], type II Minimal nonobstructive coronary artery disease cardiac catheterization 02/16/2017 Preserved ejection fraction End-stage renal disease on hemodialysis SIRS Anemia -Patient with symptoms of chest pain, abdominal pain and shortness of breath. Troponins were initially elevated and trending down. Bedside echocardiogram done demonstrated preserved ejection fraction but there were segmental wall motion abnormalities in distal anterior and apical apical segments. Given her symptoms, elevated troponins and echo findings, patient underwent cardiac catheterization this morning. Cardiac cath demonstrated no evidence of obstructive coronary artery disease. Myocardial infarction is likely type II, secondary to SIRS. Patient does complain of abdominal pain and there is concern for possible gallbladder etiology as a possible source of her symptoms. Would recommend GI and possibly surgical evaluation, continue statin therapy and beta-torsten as tolerated. Watch hemoglobin closely for need of transfusion Subjective 24 Hr Interval Summary Free Text/Dictation the aptient stable overnight Exam/Review of Systems Vital Signs Vitals Vital Signs Date Time Temp Pulse Resp B/P Pulse Ox O2 Delivery O2 Flow Rate FiO2 02/17/17 08:06 97.9 88 18 111/53 96 02/16/17 13:18 Room Air 02/15/17 22:30 2.0 Intake and Output 02/16/17 02/16/17 02/17/17 15:00 23:00 07:00 Intake Total 50 ml 980 ml 360 ml Output Total 4400 ml Balance 50 ml -3420 ml 360 ml Results Result Diagram: 02/17/17 0640 02/17/17 0640 Results 24 hrs Laboratory Tests Test 02/16/17 14:40 02/16/17 20:09 02/17/17 00:41 02/17/17 05:54 Hemoglobin 6.5 *L 10.1 #L 9.1 L Hematocrit 21.6 L 30.7 #L 26.7 L Activated Partial Thromboplast Time 29.2 Sodium Level 139 Potassium Level 5.6 H Chloride Level 108 # Carbon Dioxide Level 21 Anion Gap 16 Blood Urea Nitrogen 63 H Creatinine 6.94 H Glucose Level 97 Hemoglobin A1c Calcium Level 9.5 Magnesium Level 2.2 Total Bilirubin 0.1 L Direct Bilirubin 0.00 Indirect Bilirubin 0.1 Aspartate Amino Transf (AST/SGOT) 21 Alanine Aminotransferase (ALT/SGPT) 25 Alkaline Phosphatase 618 H Creatine Kinase 81 Creatine Kinase Index 3.8 Creatinine Kinase MB (Mass) 3.06 H Troponin I 0.514 *H Total Protein 5.9 L Albumin 3.3 Globulin 2.60 Albumin/Globulin Ratio 1.26 Triglycerides Level 148 Cholesterol Level 93 L LDL Cholesterol, Calculated 9 HDL Cholesterol 54 Cholesterol/HDL Ratio 1.7 Vitamin B12 Level 441 Folate > 20.0 H Thyroid Stimulating Hormone (TSH) 2.650 Lab Scanned Report BLOOD TRANSFUSION Test 02/17/17 06:40 Hemoglobin 8.9 L Hematocrit 27.7 L Sodium Level 136 Potassium Level 3.9 Chloride Level 99 Carbon Dioxide Level 30 Anion Gap 11 Blood Urea Nitrogen 26 #H Creatinine 3.19 #H Glucose Level 91 Calcium Level 9.3 Magnesium Level 2.0 Iron Level 59 Total Iron Binding Capacity 200 L Percent Iron Saturation 30 Ferritin 988.0 H Medications Medications Current Medications Ondansetron HCl (Zofran Inj) 4 mg Q6H PRN IV NAUSEA AND/OR VOMITING; Start 02/16 at 02:30 Metoclopramide HCl (Reglan) 10 mg Q6H PRN IV NAUSEA AND/OR VOMITING; Start 02/16 at 02:30 Acetaminophen (Tylenol Tab) 650 mg Q6H PRN PO PAIN LEVEL 1-3 OR FEVER; Start at 02:30 Docusate Sodium (Colace) 100 mg Q12H PRN PO CONSTIPATION; Start 02/16/17 at 02: 30 Bisacodyl (Dulcolax) 5 mg DAILY PRN PO CONSTIPATION; Start 02/16/17 at 02:30 Pantoprazole (Protonix Iv) 40 mg DAILY@06 IV Last administered on 02/17/17 06: 38; Admin Dose 40 MG; Start 02/16/17 at 06:00 Acetaminophen (Tylenol Tab) 650 mg Q6H PRN PO PAIN; Start 02/16/17 at 02:30 Aspirin (Halfprin) 81 mg DAILY PO Last administered on 02/17/17 09:21; Admin Dose 81 MG; Start 02/16/17 at 09:00 Cinacalcet (Sensipar) 60 mg DAILY PO Last administered on 02/17/17 09:20; Admin Dose 60 MG; Start 02/16/17 at 09:00 Folic Acid (Folic Acid) 1 mg DAILY PO Last administered on 02/17/17 09:21; Admin Dose 1 MG; Start 02/16/17 at 09:00 Risperidone (Risperdal) 0.25 mg QHS PO Last administered on 02/16/17 23:03; Admin Dose 0.25 MG; Start 02/16/17 at 21:00 Ferrous Sulfate (Ferrous Sulfate (Ec)) 325 mg DAILY PO Last administered on 02/17 09:22; Admin Dose 325 MG; Start 02/16/17 at 09:00 Morphine Sulfate 2 mg 2 mg Q4H PRN IV PAIN Last administered on 02/16/17 04:09 ; Admin Dose 2 MG; Start 02/16/17 at 04:00 Ceftriaxone Sodium (Rocephin) 50 ml @ 100 mls/hr Q24H IVPB Last administered on 02/17/17 09:19; Admin Dose 100 MLS/HR; Start 02/16/17 at 09:00 Metoprolol Tartrate (Lopressor) 25 mg BID PO Last administered on 02/16/17 23: 03; Admin Dose 25 MG; Start 02/16/17 at 09:30 Clonidine (Catapres) 0.1 mg Q6H PRN PO SBP > 160; Start 02/16/17 at 09:30 Atorvastatin Calcium (Lipitor) 20 mg HS PO Last administered on 02/16/17 23:03 ; Admin Dose 20 MG; Start 02/16/17 at 21:00 Nitroglycerin (Nitroglycerin (Sl Tab) 0.4 Mg) 1 tab Q5M PRN SL ANGINA; Start at 09:30 Simethicone (Mylicon) 80 mg Q6H PRN PO DISTENSION/GAS/BLOATING; Start 02/17/17 at 10:00 DEANNE JOEL MD Feb 17, 2017 10:16
--- NOTE | 2017-02-17 11:01 | CONS ---
DATE OF ADMISSION: 02/15/2017 DATE OF CONSULTATION: 02/16/2017 REASON FOR CONSULTATION: End-stage renal disease. HISTORY OF PRESENT ILLNESS: This is a 66-year-old female with a history of a congenital solitary kidney, history of end-stage renal disease on dialysis Sunday, , and Sunday dialysis with . The patient does not remember account review specialist's name, who reports on presenting to the hospital with complaints of vomiting, epigastric pain and chest pain. The patient stated that her last dialysis was 5 days ago. The patient, upon arrival, was noted to have elevated troponin. She was admitted to telemetry and being treated for the possible NSTEMI. PAST MEDICAL HISTORY: As stated above. History of end-stage renal disease. History of sciatica. History of hypertension. PAST SURGICAL HISTORY: Status post-left AV fistula. FAMILY HISTORY: Positive for diabetes. SOCIAL HISTORY: Does not drink, smoke, or do drugs. MEDICATION: The patient's medications have been reviewed. REVIEW OF SYSTEMS: A 14 review of systems was conducted. Pertinent positive in HPI, otherwise negative. PHYSICAL EXAMINATION: VITAL SIGNS: Blood pressure is 111/53, respirations 18, pulse 88, temp 97.9. HEENT: Head is normocephalic. Pupils are reactive to light. NECK: Supple. HEART: Regular rate. LUNGS: Diminished breath sounds at the base. ABDOMEN: Soft, nontender to palpation. No guarding. EXTREMITIES: Negative for clubbing, cyanosis. No edema. DERMATOLOGIC: No rashes. MUSCULOSKELETAL: No joint effusion. NEUROLOGIC: No focal deficits. LABORATORY DATA: Shows sodium 139, potassium 5.6, BUN 63, creatinine 6.94. White count 9.4, hemoglobin 7.8, hematocrit 24.3, platelet count 171,000. IMPRESSION AND PLAN: This is a 58-year-old female presents with: 1. End-stage renal disease on dialysis Sunday, , and Sunday. Plan is for hemodialysis today due to hypokalemia. Will dialyze 3 hours on 2 potassium bath, calcium 2.5, ultrafiltration as tolerated. 2. Hypokalemia dialyzed on a 2 potassium bath. 3. Anemia. Monitor hemoglobin and hematocrit levels. Will give Epogen. Consider blood transfusion. 4. Mineral bone disorder. Monitor calcium and phosphorus levels. 5. Possible non ST elevated myocardial infarction. Continue medical management. Follow up with Cardiology. 6. Urinary tract infection. Continue current antibiotic regimen. Thank you, Dr. Shah, for this interesting consult. It will be a pleasure to follow patient with you throughout the hospital course. Dictated By: Yfn Benitez DO /andra/bo /Document#: [id number]
--- NOTE | 2017-02-17 12:05 | PN ---
DATE: 02/17/2017 SUBJECTIVE DATA: The patient had hemodialysis yesterday, she tolerated it well. The patient also had a cardiac cath which showed normal clean coronaries. No other events noted. OBJECTIVE DATA: VITAL SIGNS: Blood pressure is 153, respirations 18, pulse 88, and temperature 97.9. HEENT: Head is normocephalic. NECK: Supple. HEART: Regular rate. LUNGS: Diminished breath sounds at the base. ABDOMEN: Soft, nontender to palpation. No rebound or guarding. EXTREMITIES: Negative for clubbing, cyanosis. No edema. DERMATOLOGIC: No rashes. MUSCULOSKELETAL: No joint effusion. NEUROLOGIC: No change in exam. MEDICATIONS: Reviewed. LABORATORY AND DIAGNOSTIC DATA: White count 8.9. Sodium 136, potassium 69, BUN 26, creatinine 3.19. The patient's abdominal MRI did show a distended gallbladder. No evidence of calculi. No biliary obstruction. ASSESSMENT AND PLAN: 1. End-stage renal disease. Patient dialysis Sunday, , and Sunday. Will have dialysis today to keep on schedule. 2. Hypokalemia, resolved. 3. Anemia. Continue to monitor hemoglobin and hematocrit levels. Will give Epogen. 4. Mineral bone disorder. Monitor calcium and phosphorus levels. 5. Chest pain. Patient was ruled out for acute coronary syndrome, as cardiac cath was negative for any acute findings. 6. Urinary tract infection. Continue current antibiotic regimen. 7. Elevated alkaline phosphatase. The patient's abdominal MRI was reviewed. Continue to monitor. Dictated By: Yfn Benitez DO /andra/bo /Document#: [id number]
--- NOTE | 2017-02-17 16:01 | PN ---
Date/Time of Note Date/Time of Note DATE: 02/17/17 TIME: 15:51 Assessment/Plan VTE Prophylaxis VTE Prophylaxis Intervention: other Lines/Catheters IV Catheter Type (from Nrs): Saline Lock Assessment/Plan Assessment/Plan 1. Chest pain s/p cardiac cath - Non-ST elevation DE, type II - s/p cardiac cath that showed minimal nonobstructive coronary artery disease on 02/16/2017 - ECHO showed preserved ejection fraction 2. Flatulence - Will prescribe patient Simethicone for relief 3. Epigastric pain with elevated alk phos - GI consulted and awaiting recommendations - Abdominal ultrasound with biliary obstruction per radiology. - MRCP showed distended gallbladder measuring 10 cm may indicate gallbladder hydrops. Negative for evidence of calculi or gallbladder wall inflammation. 3. ESRD on HD -Management per nephrology 4. UTI -Continue antibiotic -Follow-up culture results 5. Hypertension -Adjust antihypertensives as needed 6. Microcytic anemia - Follow-up Vit B12, folate and iron profile - stable Subjective 24 Hr Interval Summary Free Text/Dictation Patient states she has been experiencing increase flatulence since eating this morning. She has been experiencing epigastric pain but obtains relief after burping. Denies any nausea, vomiting, shortness of breath. Still c/o same abdominal discomfort and awaiting GI input. Exam/Review of Systems Vital Signs Vitals Vital Signs Date Time Temp Pulse Resp B/P Pulse Ox O2 Delivery O2 Flow Rate FiO2 02/17/17 15:29 98.0 98 17 120/55 96 02/16/17 13:18 Room Air 02/15/17 22:30 2.0 Intake and Output 02/16/17 02/16/17 02/17/17 15:00 23:00 07:00 Intake Total 50 ml 980 ml 360 ml Output Total 4400 ml Balance 50 ml -3420 ml 360 ml Exam General: NAD, pleasant and cooperative CVS: regular rate and rhythm. no murmurs Lungs: CTA b/l, diminished at bases. no crackles or wheezing Abd: soft, nontender with light palpation, nondistended, no rebound or guarding Ext: no edema, cyanosis, or clubbing Neuro: oriented x4, no focal deficits Results Result Diagram: 02/17/17 0640 02/17/17 0640 Results 24 hrs Laboratory Tests Test 02/16/17 20:09 02/17/17 00:41 02/17/17 05:54 02/17/17 06:40 Hemoglobin 10.1 #L 9.1 L 8.9 L Hematocrit 30.7 #L 26.7 L 27.7 L Lab Scanned Report BLOOD TRANSFUSION Sodium Level 136 Potassium Level 3.9 Chloride Level 99 Carbon Dioxide Level 30 Anion Gap 11 Blood Urea Nitrogen 26 #H Creatinine 3.19 #H Glucose Level 91 Calcium Level 9.3 Magnesium Level 2.0 Iron Level 59 Total Iron Binding Capacity 200 L Percent Iron Saturation 30 Ferritin 988.0 H Medications Medications Current Medications Ondansetron HCl (Zofran Inj) 4 mg Q6H PRN IV NAUSEA AND/OR VOMITING; Start 02/16 at 02:30 Metoclopramide HCl (Reglan) 10 mg Q6H PRN IV NAUSEA AND/OR VOMITING; Start 02/16 at 02:30 Acetaminophen (Tylenol Tab) 650 mg Q6H PRN PO PAIN LEVEL 1-3 OR FEVER; Start at 02:30 Docusate Sodium (Colace) 100 mg Q12H PRN PO CONSTIPATION; Start 02/16/17 at 02: 30 Bisacodyl (Dulcolax) 5 mg DAILY PRN PO CONSTIPATION; Start 02/16/17 at 02:30 Pantoprazole (Protonix Iv) 40 mg DAILY@06 IV Last administered on 02/17/17 06: 38; Admin Dose 40 MG; Start 02/16/17 at 06:00 Acetaminophen (Tylenol Tab) 650 mg Q6H PRN PO PAIN; Start 02/16/17 at 02:30 Aspirin (Halfprin) 81 mg DAILY PO Last administered on 02/17/17 09:21; Admin Dose 81 MG; Start 02/16/17 at 09:00 Cinacalcet (Sensipar) 60 mg DAILY PO Last administered on 02/17/17 09:20; Admin Dose 60 MG; Start 02/16/17 at 09:00 Folic Acid (Folic Acid) 1 mg DAILY PO Last administered on 02/17/17 09:21; Admin Dose 1 MG; Start 02/16/17 at 09:00 Risperidone (Risperdal) 0.25 mg QHS PO Last administered on 02/16/17 23:03; Admin Dose 0.25 MG; Start 02/16/17 at 21:00 Ferrous Sulfate (Ferrous Sulfate (Ec)) 325 mg DAILY PO Last administered on 02/17 09:22; Admin Dose 325 MG; Start 02/16/17 at 09:00 Morphine Sulfate 2 mg 2 mg Q4H PRN IV PAIN Last administered on 02/16/17 04:09 ; Admin Dose 2 MG; Start 02/16/17 at 04:00 Ceftriaxone Sodium (Rocephin) 50 ml @ 100 mls/hr Q24H IVPB Last administered on 02/17/17 09:19; Admin Dose 100 MLS/HR; Start 02/16/17 at 09:00 Metoprolol Tartrate (Lopressor) 25 mg BID PO Last administered on 02/16/17 23: 03; Admin Dose 25 MG; Start 02/16/17 at 09:30 Clonidine (Catapres) 0.1 mg Q6H PRN PO SBP > 160; Start 02/16/17 at 09:30 Atorvastatin Calcium (Lipitor) 20 mg HS PO Last administered on 02/16/17 23:03 ; Admin Dose 20 MG; Start 02/16/17 at 21:00 Nitroglycerin (Nitroglycerin (Sl Tab) 0.4 Mg) 1 tab Q5M PRN SL ANGINA; Start at 09:30 Simethicone (Mylicon) 80 mg Q6H PRN PO DISTENSION/GAS/BLOATING; Start 02/17/17 at 10:00 ANA SALAS MD Feb 17, 2017 16:01
[2017-02-17] MEDS: RISPERIDONE 0.25 MG TAB PO SCH (20:40)
[2017-02-17] MEDS: ATORVASTATIN 20 MG TAB PO SCH (20:40)
[2017-02-18] VITALS (12 sets, daily range): BP systolic 107–139; BP diastolic 50–65; PULSE 73–93; RESP 17–19
[2017-02-18 06:19] LABS: BASOPHILS % 0.2 % (0.0-2.0); EOSINOPHILS # 0.1 10^3/ul (0.0-0.5); EOSINOPHILS % 1.3 % (0.0-7.0); HEMATOCRIT 25.9 % (37.0-47.0); HEMOGLOBIN 8.4 g/dl (12.0-16.0); LYMPHOCYTES # 1.6 10^3/ul (0.8-2.9); LYMPHOCYTES % 26.1 % (15.0-51.0); MEAN CORPUSCULAR HEMOGLOBIN 32.4 pg (29.0-33.0); MEAN CORPUSCULAR HGB CONC 32.4 g/dl (32.0-37.0); MEAN PLATELET VOLUME 11.3 fl (7.4-10.4); MONOCYTE # 0.5 10^3/ul (0.3-0.9); MONOCYTES % 8.8 % (0.0-11.0); NEUTROPHILS % 63.3 % (39.0-77.0); PLATELET COUNT 139 10^3/UL (140-415); RED BLOOD COUNT 2.59 10^6/ul (4.20-5.40); RED CELL DISTRIBUTION WIDTH 17.4 % (11.5-14.5); WHITE BLOOD COUNT 6.1 10^3/ul (4.8-10.8)
[2017-02-18] MEDS: PANTOPRAZOLE 40 MG INJ IV SCH (06:23)
[2017-02-18 06:34] LABS: CALCIUM 9.1 mg/dl (8.4-10.2); CREATININE 3.06 mg/dl (0.44-1.00); MAGNESIUM 1.9 mg/dl (1.7-2.5); PHOSPHORUS 4.2 mg/dl (2.5-4.9); POTASSIUM 3.7 mmol/L (3.5-5.1)
--- NOTE | 2017-02-18 09:05 | PN ---
DATE: 02/18/2017 SUBJECTIVE DATA: Patient is stable. Had hemodialysis yesterday, tolerated well. No other events noted. OBJECTIVE DATA: VITAL SIGNS: Blood pressure 139/65, respirations 17, pulse 85, temperature 98.5. HEENT: Head is normocephalic. NECK: Supple. HEART: Regular rate. LUNGS: Diminished breath sounds at the base. ABDOMEN: Soft, nontender to palpation. No rebound or guarding. EXTREMITIES: Negative for clubbing, cyanosis. No edema. DERMATOLOGIC: Clean. No rashes. MUSCULOSKELETAL: No joint effusion. NEUROLOGIC: Unchanged exam. MEDICATIONS: Reviewed. LABORATORY AND DIAGNOSTIC DATA: Been reviewed. The patient has BUN 25, creatinine 3.06. ASSESSMENT AND PLAN: 1. End-stage renal disease. The patient is on dialysis Sunday, , Sunday. Access is an arterioventricular fistula. The patient had hemodialysis yesterday, tolerated well. Plan for next dialysis on Sunday. 2. Hypokalemia, resolved. 3. Anemia. Monitor H and H levels. Will give Epogen with dialysis. 4. Mineral bone disorder. Monitor calcium and phosphorus levels. 5. Chest pain. The patient is ruled out for acute coronary syndrome. Cardiac cath was negative. Continue medical management. 6. Urinary tract infection. Continue current antibiotic regimen. 7. Elevated alkaline phosphatase. MRCP shows distended gallbladder. Continue to monitor. Follow up with primary team. Dictated By: Yfn Benitez DO /andra/bianca /Document#: [id number]
[2017-02-18] MEDS: SEVELAMER CARBONATE 0.8 GM PKT PO SCH ×3 (10:34→18:18)
[2017-02-18] MEDS: FERROUS SULFATE (EC) 325 MG TAB PO SCH (10:34)
[2017-02-18] MEDS: ASPIRIN (EC) 81 MG TAB PO SCH (10:35)
[2017-02-18] MEDS: CINACALCET 30 MG TAB PO SCH (10:35)
[2017-02-18] MEDS: FOLIC ACID 1 MG TAB PO SCH (10:36)
[2017-02-18] MEDS: CEFTRIAXONE 1 GM/50 ML (PMX) 50 ML IVPB SCH (10:37)
[2017-02-18] MEDS: METOPROLOL 25 MG TAB PO SCH ×2 (10:37→20:52)
--- NOTE | 2017-02-18 10:49 | PN ---
DATE: 02/18/2017 SUBJECTIVE DATA: The patient looks comfortable, in no distress. OBJECTIVE DATA: VITAL SIGNS: Temperature 98, 1 pulse 87, blood pressure 139/65, oxygen saturation 96 percent. LUNGS: Clear. ABDOMEN: Soft. EXTREMITIES: Reveal no edema. CURRENT MEDICATIONS: 1. Epogen. 2. Risperidone. 3. Lipitor. 4. Metoprolol. 5. Clonidin. 6. Aspirin. 7. Ceftriaxone. ASSESSMENT: 1. Elevated troponin with a negative coronary angiography. 2. Severe renal dysfunction. 3. Possible cholecystitis. 4. Elevated troponin, noncardiac, likely secondary to infectious and systemic inflammatory response. PLAN: We will continue current medications with no further cardiac recommendations at this time. Dictated By: Terry Ramos MD /andra/bianca /Document#: [id number]
--- NOTE | 2017-02-18 11:32 | PN ---
Date/Time of Note Date/Time of Note DATE: 02/18/17 TIME: 11:32 Assessment/Plan VTE Prophylaxis VTE Prophylaxis Intervention: ambulation Lines/Catheters IV Catheter Type (from Nrsg): Saline Lock Assessment/Plan Assessment/Plan 1. Epigastric pain with elevated alk phos - GI consulted and appreciate input. Will plan for EGD to see if abnormality causing her chest pain 2. Gallbladder Hydrops - MRCP showed distended gallbladder measuring 10 cm may indicate gallbladder hydrops. Negative for evidence of calculi or gallbladder wall inflammation. - Surgery consulted and appreciate recommendations - HIDA scan ordered and will await results 3. Chest pain s/p cardiac cath - Non-ST elevation NM, type II - s/p cardiac cath that showed minimal nonobstructive coronary artery disease on 02/16/2017 - ECHO showed preserved ejection fraction - ?GI etiology 4. ESRD on HD -Management per nephrology 5. UTI - Growing Klebsiella sensitive to all antibiotics - Continue Rocephin, on day 3 6. Hypertension -Adjust antihypertensives as needed 7. Microcytic anemia - Follow-up Vit B12, folate and iron profile - stable Subjective 24 Hr Interval Summary Free Text/Dictation Patient states she is feeling better and medication is helping with her gas. She is still experiencing pain in RUQ after eating. Willing to speak with Surgery now. patient denies any fevers, chills, nausea, vomiting, chest pain, or shortness of breath. Exam/Review of Systems Vital Signs Vitals Vital Signs Date Time Temp Pulse Resp B/P Pulse Ox O2 Delivery O2 Flow Rate FiO2 02/18/17 08:00 87 02/18/17 07:51 98.1 17 139/65 96 02/16/17 13:18 Room Air 02/15/17 22:30 2.0 Intake and Output 02/17/17 02/17/17 02/18/17 15:00 23:00 07:00 Intake Total 550 ml 850 ml Output Total 500 ml Balance 50 ml 850 ml Exam General: NAD, pleasant and cooperative CVS: regular rate and rhythm. no murmurs Lungs: CTA b/l, diminished at bases. no crackles or wheezing Abd: soft, nontender with light palpation, nondistended, no rebound or guarding Ext: no edema, cyanosis, or clubbing Neuro: oriented x4, no focal deficits Results Result Diagram: 02/18/17 0600 02/18/17 0600 Results 24 hrs Laboratory Tests Test 02/18/17 06:00 White Blood Count 6.1 # Red Blood Count 2.59 L Hemoglobin 8.4 L Hematocrit 25.9 L Mean Corpuscular Volume 100.0 Mean Corpuscular Hemoglobin 32.4 Mean Corpuscular Hemoglobin Concent 32.4 Red Cell Distribution Width 17.4 H Platelet Count 139 L Mean Platelet Volume 11.3 H Neutrophils % 63.3 Lymphocytes % 26.1 Monocytes % 8.8 Eosinophils % 1.3 Basophils % 0.2 Nucleated Red Blood Cells % 0.0 Neutrophils # (Manual) 3.9 Lymphocytes # 1.6 Monocytes # 0.5 Eosinophils # 0.1 Basophils # 0.0 Nucleated Red Blood Cells # 0.0 Sodium Level 137 Potassium Level 3.7 Chloride Level 103 Carbon Dioxide Level 29 Anion Gap 9 Blood Urea Nitrogen 25 H Creatinine 3.06 H Glucose Level 92 Calcium Level 9.1 Phosphorus Level 4.2 Magnesium Level 1.9 Medications Medications Current Medications Ondansetron HCl (Zofran Inj) 4 mg Q6H PRN IV NAUSEA AND/OR VOMITING; Start 02/16 at 02:30 Metoclopramide HCl (Reglan) 10 mg Q6H PRN IV NAUSEA AND/OR VOMITING; Start 02/16 at 02:30 Acetaminophen (Tylenol Tab) 650 mg Q6H PRN PO PAIN LEVEL 1-3 OR FEVER; Start at 02:30 Docusate Sodium (Colace) 100 mg Q12H PRN PO CONSTIPATION; Start 02/16/17 at 02: 30 Bisacodyl (Dulcolax) 5 mg DAILY PRN PO CONSTIPATION; Start 02/16/17 at 02:30 Pantoprazole (Protonix Iv) 40 mg DAILY@06 IV Last administered on 02/18/17 06: 23; Admin Dose 40 MG; Start 02/16/17 at 06:00 Acetaminophen (Tylenol Tab) 650 mg Q6H PRN PO PAIN; Start 02/16/17 at 02:30 Aspirin (Halfprin) 81 mg DAILY PO Last administered on 02/18/17 10:35; Admin Dose 81 MG; Start 02/16/17 at 09:00 Cinacalcet (Sensipar) 60 mg DAILY PO Last administered on 02/18/17 10:35; Admin Dose 60 MG; Start 02/16/17 at 09:00 Folic Acid (Folic Acid) 1 mg DAILY PO Last administered on 02/18/17 10:36; Admin Dose 1 MG; Start 02/16/17 at 09:00 Risperidone (Risperdal) 0.25 mg QHS PO Last administered on 02/17/17 20:40; Admin Dose 0.25 MG; Start 02/16/17 at 21:00 Ferrous Sulfate (Ferrous Sulfate (Ec)) 325 mg DAILY PO Last administered on 10:34; Admin Dose 325 MG; Start 02/16/17 at 09:00 Morphine Sulfate 2 mg 2 mg Q4H PRN IV PAIN Last administered on 02/16/17 04:09 ; Admin Dose 2 MG; Start 02/16/17 at 04:00 Ceftriaxone Sodium (Rocephin) 50 ml @ 100 mls/hr Q24H IVPB Last administered on 02/18/17 10:37; Admin Dose 100 MLS/HR; Start 02/16/17 at 09:00 Metoprolol Tartrate (Lopressor) 25 mg BID PO Last administered on 02/18/17 10: 37; Admin Dose 25 MG; Start 02/16/17 at 09:30 Clonidine (Catapres) 0.1 mg Q6H PRN PO SBP > 160; Start 02/16/17 at 09:30 Atorvastatin Calcium (Lipitor) 20 mg HS PO Last administered on 02/17/17 20:40 ; Admin Dose 20 MG; Start 02/16/17 at 21:00 Nitroglycerin (Nitroglycerin (Sl Tab) 0.4 Mg) 1 tab Q5M PRN SL ANGINA; Start at 09:30 Simethicone (Mylicon) 80 mg Q6H PRN PO DISTENSION/GAS/BLOATING Last administered on 02/17/17 19:36; Admin Dose 80 MG; Start 02/17/17 at 10:00 ANA SALAS MD Feb 18, 2017 11:32
--- NOTE | 2017-02-18 12:09 | CONS ---
Date/Time of Note Date/Time of Note DATE: 02/18/17 TIME: 12:05 Assessment/Plan Assessment/Plan Additional Assessment/Plan We will rule out gallbladder hydrops with HIDA scan. Currently the patient is asymptomatic. Plan: Further recommendations will be based on the patient's further workup and clinical course. I will follow with you. Consultation Date/Type/Reason Admit Date/Time Feb 15, 2017 at 22:49 Date of Consultation: Feb 18, 2017 Reason for Consultation Distended gallbladder with possible hydrops Hx of Present Illness Patient is a 66-year-old female who was admitted recently for epigastric and abdominal pain. She has chronic renal failure and is a dialysis patient. She underwent coronary angiography which did not show any critical lesions. The abdomen was further evaluated with MRI and ultrasound. Both studies showed a distended gallbladder but without stones. The patient states that she has no abdominal pain today and is able to eat without any discomfort. She has had no fevers, chills or jaundice Constitutional: no complaints Eyes: no complaints ENT: no complaints Respiratory: no complaints Cardiovascular: no complaints Gastrointestinal: pain (As in the HPI) Genitourinary: no complaints Musculoskeletal: no complaints Skin: no complaints Neurologic: no complaints Endocrine: no complaints Lymphatic: no complaints Psychological: no complaints Immunologic: no complaints Past Medical History Medical History: renal disease Past Surgical History Past Surgical Hx: no surgical history, other (Hemodialysis fistula, dominant surgery) Family History Significant Family History: no pertinent family hx Social History Alcohol Use: none Smoking Status: Never smoker Drug Use: none Exam/Review of Systems Vital Signs Vitals Vital Signs Date Time Temp Pulse Resp B/P Pulse Ox O2 Delivery O2 Flow Rate FiO2 02/18/17 11:56 98.5 76 18 132/58 95 02/16/17 13:18 Room Air 02/15/17 22:30 2.0 Intake and Output 02/17/17 02/17/17 02/18/17 15:00 23:00 07:00 Intake Total 550 ml 850 ml Output Total 500 ml Balance 50 ml 850 ml Exam Constitutional: alert Psych: no complaints Head: normocephalic ENMT: nl external ears & nose Neck: supple Respiratory: clear to auscultation Gastrointestinal: soft Musculoskeletal: nl extremities to inspection Extremities: normal pulses Neurological: [employer] II-XII intact, nl mental status, nl speech Skin: nl turgor Lymph: nl lymph nodes Results Result Diagram: 02/18/17 0600 02/18/17 0600 Results 24 hrs Laboratory Tests Test 02/18/17 06:00 White Blood Count 6.1 # Red Blood Count 2.59 L Hemoglobin 8.4 L Hematocrit 25.9 L Mean Corpuscular Volume 100.0 Mean Corpuscular Hemoglobin 32.4 Mean Corpuscular Hemoglobin Concent 32.4 Red Cell Distribution Width 17.4 H Platelet Count 139 L Mean Platelet Volume 11.3 H Neutrophils % 63.3 Lymphocytes % 26.1 Monocytes % 8.8 Eosinophils % 1.3 Basophils % 0.2 Nucleated Red Blood Cells % 0.0 Neutrophils # (Manual) 3.9 Lymphocytes # 1.6 Monocytes # 0.5 Eosinophils # 0.1 Basophils # 0.0 Nucleated Red Blood Cells # 0.0 Sodium Level 137 Potassium Level 3.7 Chloride Level 103 Carbon Dioxide Level 29 Anion Gap 9 Blood Urea Nitrogen 25 H Creatinine 3.06 H Glucose Level 92 Calcium Level 9.1 Phosphorus Level 4.2 Magnesium Level 1.9 Medications Medications Current Medications Ondansetron HCl (Zofran Inj) 4 mg Q6H PRN IV NAUSEA AND/OR VOMITING; Start 02/16 at 02:30 Metoclopramide HCl (Reglan) 10 mg Q6H PRN IV NAUSEA AND/OR VOMITING; Start 02/16 at 02:30 Acetaminophen (Tylenol Tab) 650 mg Q6H PRN PO PAIN LEVEL 1-3 OR FEVER; Start at 02:30 Docusate Sodium (Colace) 100 mg Q12H PRN PO CONSTIPATION; Start 02/16/17 at 02: 30 Bisacodyl (Dulcolax) 5 mg DAILY PRN PO CONSTIPATION; Start 02/16/17 at 02:30 Pantoprazole (Protonix Iv) 40 mg DAILY@06 IV Last administered on 02/18/17 06: 23; Admin Dose 40 MG; Start 02/16/17 at 06:00 Acetaminophen (Tylenol Tab) 650 mg Q6H PRN PO PAIN; Start 02/16/17 at 02:30 Aspirin (Halfprin) 81 mg DAILY PO Last administered on 02/18/17 10:35; Admin Dose 81 MG; Start 02/16/17 at 09:00 Cinacalcet (Sensipar) 60 mg DAILY PO Last administered on 02/18/17 10:35; Admin Dose 60 MG; Start 02/16/17 at 09:00 Folic Acid (Folic Acid) 1 mg DAILY PO Last administered on 02/18/17 10:36; Admin Dose 1 MG; Start 02/16/17 at 09:00 Risperidone (Risperdal) 0.25 mg QHS PO Last administered on 02/17/17 20:40; Admin Dose 0.25 MG; Start 02/16/17 at 21:00 Ferrous Sulfate (Ferrous Sulfate (Ec)) 325 mg DAILY PO Last administered on 10:34; Admin Dose 325 MG; Start 02/16/17 at 09:00 Morphine Sulfate 2 mg 2 mg Q4H PRN IV PAIN Last administered on 02/16/17 04:09 ; Admin Dose 2 MG; Start 02/16/17 at 04:00 Ceftriaxone Sodium (Rocephin) 50 ml @ 100 mls/hr Q24H IVPB Last administered on 02/18/17 10:37; Admin Dose 100 MLS/HR; Start 02/16/17 at 09:00 Metoprolol Tartrate (Lopressor) 25 mg BID PO Last administered on 02/18/17 10: 37; Admin Dose 25 MG; Start 02/16/17 at 09:30 Clonidine (Catapres) 0.1 mg Q6H PRN PO SBP > 160; Start 02/16/17 at 09:30 Atorvastatin Calcium (Lipitor) 20 mg HS PO Last administered on 02/17/17 20:40 ; Admin Dose 20 MG; Start 02/16/17 at 21:00 Nitroglycerin (Nitroglycerin (Sl Tab) 0.4 Mg) 1 tab Q5M PRN SL ANGINA; Start at 09:30 Simethicone (Mylicon) 80 mg Q6H PRN PO DISTENSION/GAS/BLOATING Last administered on 02/17/17 19:36; Admin Dose 80 MG; Start 02/17/17 at 10:00 JACQUELIEN NAJERA MD Feb 18, 2017 12:09
[2017-02-18 12:15] LABS: ALBUMIN 2.7 g/dl (3.3-4.9); BILIRUBIN,INDIRECT 0.3 mg/dl (0-1.1); BILIRUBIN,TOTAL 0.3 mg/dl (0.2-1.3); TOTAL PROTEIN 4.7 g/dl (6.1-8.1)
--- NOTE | 2017-02-18 12:42 | CONS ---
Date/Time of Note Date/Time of Note DATE: 02/18/17 TIME: 12:26 Assessment/Plan Assessment/Plan Additional Assessment/Plan Assessment * Elevated troponin with negative coronary angiogfraphy * Chest pain * Anemia Acute vs chronic * ESRD on dialysis * UTI * Distended gallbladder by MRCP with no stone Plan * will await HIDA scan results * continue present management * EGD tomorrow risks and benefit explain to patient and agreed with the planned procedure * Case discussed with Dr Gamble * Further orders will depend on clinical course Consultation Date/Type/Reason Admit Date/Time Feb 15, 2017 at 22:49 Date of Consultation: Feb 18, 2017 Type of Consultation: Gastroenterology Reason for Consultation distended gallbladder/abdominal pain Referring Provider: ANA SALAS MD Hx of Present Illness 66 year old female with past medical history of ESRD on dialysis,Unilateral kidney and hypertension presented in the emergency room complaining of abdominal ,chest and shoulder pain x 2days .Denies any episode of vomiting nor shortness of breath.Emergency room course revealed Elevated troponin, UTI and anemia.Patient was subsequently transfused with blood and present hemoglobin 8.4.She denies any hematemesis nor hematochezia however still with abdominal discomfort.MRCP revealed Distended gallbladder measuring 10 cm may indicate gallbladder hydrops. Negative for evidence of calculi or gallbladder wall inflammation.Negative for evidence of biliary obstruction. Negative for dilatation of intrahepatic or extrahepatic bile ducts. Very small right kidney is either hypoplastic or atrophic. Mild left hydronephrosis is incompletely evaluated.. Surgery on board and a HIDA scan was requested,. I have spoke with the patient and explained to her that we need to wait for HIDA scan results and plan to do EGD to evaluate abdominal pain and chest pain since coronary angiogram is negative.Patient agreed with the planned procedure Constitutional: no complaints Eyes: no complaints ENT: no complaints Respiratory: no complaints Cardiovascular: no complaints Gastrointestinal: pain (As in the HPI) Genitourinary: no complaints Musculoskeletal: no complaints Skin: no complaints Neurologic: no complaints Endocrine: no complaints Lymphatic: no complaints Psychological: no complaints Immunologic: no complaints Past Medical History Medical History: hypertension, renal disease Past Surgical History Past Surgical Hx: no surgical history, other (Hemodialysis fistula, dominant surgery) Social History Alcohol Use: none Smoking Status: Never smoker Drug Use: none Exam/Review of Systems Vital Signs Vitals Vital Signs Date Time Temp Pulse Resp B/P Pulse Ox O2 Delivery O2 Flow Rate FiO2 02/18/17 11:56 98.5 76 18 132/58 95 02/16/17 13:18 Room Air 02/15/17 22:30 2.0 Intake and Output 02/17/17 02/17/17 02/18/17 15:00 23:00 07:00 Intake Total 550 ml 850 ml Output Total 500 ml Balance 50 ml 850 ml Exam Constitutional: alert, oriented, well developed Psych: nl mood/affect, no complaints Head: atraumatic, normocephalic Eyes: EOMI, PERRL, nl conjunctiva, nl lids, nl sclera ENMT: nl external ears & nose, nl lips & teeth, nl nasal mucosa & septum Neck: non-tender, supple Respiratory: clear to auscultation, normal air movement Cardiovascular: nl pulses, regular rate and rhythm Gastrointestinal: nl liver, spleen, non-tender, soft, No rebound or guarding Musculoskeletal: nl extremities to inspection, nl gait and stance Extremities: normal pulses Neurological: PIANO TECHNICIAN II-XII intact, nl mental status, nl speech, nl strength Skin: ecchymosis, nl turgor, rash or lesions Lymph: nl lymph nodes Results Result Diagram: 02/18/17 0600 02/18/17 0600 Results 24 hrs Laboratory Tests Test 02/18/17 06:00 White Blood Count 6.1 # Red Blood Count 2.59 L Hemoglobin 8.4 L Hematocrit 25.9 L Mean Corpuscular Volume 100.0 Mean Corpuscular Hemoglobin 32.4 Mean Corpuscular Hemoglobin Concent 32.4 Red Cell Distribution Width 17.4 H Platelet Count 139 L Mean Platelet Volume 11.3 H Neutrophils % 63.3 Lymphocytes % 26.1 Monocytes % 8.8 Eosinophils % 1.3 Basophils % 0.2 Nucleated Red Blood Cells % 0.0 Neutrophils # (Manual) 3.9 Lymphocytes # 1.6 Monocytes # 0.5 Eosinophils # 0.1 Basophils # 0.0 Nucleated Red Blood Cells # 0.0 Sodium Level 137 Potassium Level 3.7 Chloride Level 103 Carbon Dioxide Level 29 Anion Gap 9 Blood Urea Nitrogen 25 H Creatinine 3.06 H Glucose Level 92 Calcium Level 9.1 Phosphorus Level 4.2 Magnesium Level 1.9 Total Bilirubin 0.3 Direct Bilirubin 0.00 Indirect Bilirubin 0.3 Aspartate Amino Transf (AST/SGOT) 15 Alanine Aminotransferase (ALT/SGPT) 25 Alkaline Phosphatase 493 H Total Protein 4.7 #L Albumin 2.7 L Medications Medications Current Medications Ondansetron HCl (Zofran Inj) 4 mg Q6H PRN IV NAUSEA AND/OR VOMITING; Start 02/16 at 02:30 Metoclopramide HCl (Reglan) 10 mg Q6H PRN IV NAUSEA AND/OR VOMITING; Start 02/16 at 02:30 Acetaminophen (Tylenol Tab) 650 mg Q6H PRN PO PAIN LEVEL 1-3 OR FEVER; Start at 02:30 Docusate Sodium (Colace) 100 mg Q12H PRN PO CONSTIPATION; Start 02/16/17 at 02: 30 Bisacodyl (Dulcolax) 5 mg DAILY PRN PO CONSTIPATION; Start 02/16/17 at 02:30 Pantoprazole (Protonix Iv) 40 mg DAILY@06 IV Last administered on 02/18/17 06: 23; Admin Dose 40 MG; Start 02/16/17 at 06:00 Acetaminophen (Tylenol Tab) 650 mg Q6H PRN PO PAIN; Start 02/16/17 at 02:30 Aspirin (Halfprin) 81 mg DAILY PO Last administered on 02/18/17 10:35; Admin Dose 81 MG; Start 02/16/17 at 09:00 Cinacalcet (Sensipar) 60 mg DAILY PO Last administered on 02/18/17 10:35; Admin Dose 60 MG; Start 02/16/17 at 09:00 Folic Acid (Folic Acid) 1 mg DAILY PO Last administered on 02/18/17 10:36; Admin Dose 1 MG; Start 02/16/17 at 09:00 Risperidone (Risperdal) 0.25 mg QHS PO Last administered on 02/17/17 20:40; Admin Dose 0.25 MG; Start 02/16/17 at 21:00 Ferrous Sulfate (Ferrous Sulfate (Ec)) 325 mg DAILY PO Last administered on 10:34; Admin Dose 325 MG; Start 02/16/17 at 09:00 Morphine Sulfate 2 mg 2 mg Q4H PRN IV PAIN Last administered on 02/16/17 04:09 ; Admin Dose 2 MG; Start 02/16/17 at 04:00 Ceftriaxone Sodium (Rocephin) 50 ml @ 100 mls/hr Q24H IVPB Last administered on 02/18/17 10:37; Admin Dose 100 MLS/HR; Start 02/16/17 at 09:00 Metoprolol Tartrate (Lopressor) 25 mg BID PO Last administered on 02/18/17 10: 37; Admin Dose 25 MG; Start 02/16/17 at 09:30 Clonidine (Catapres) 0.1 mg Q6H PRN PO SBP > 160; Start 02/16/17 at 09:30 Atorvastatin Calcium (Lipitor) 20 mg HS PO Last administered on 02/17/17 20:40 ; Admin Dose 20 MG; Start 02/16/17 at 21:00 Nitroglycerin (Nitroglycerin (Sl Tab) 0.4 Mg) 1 tab Q5M PRN SL ANGINA; Start at 09:30 Simethicone (Mylicon) 80 mg Q6H PRN PO DISTENSION/GAS/BLOATING Last administered on 02/17/17 19:36; Admin Dose 80 MG; Start 02/17/17 at 10:00 SONYA SABA NP Feb 18, 2017 12:36
[2017-02-18] MEDS: RISPERIDONE 0.25 MG TAB PO SCH (20:51)
[2017-02-18] MEDS: ATORVASTATIN 20 MG TAB PO SCH (20:52)
[2017-02-19] VITALS (16 sets, daily range): BP systolic 106–133; BP diastolic 54–73; PULSE 75–87; RESP 17–19
[2017-02-19] MEDS: PANTOPRAZOLE 40 MG INJ IV SCH ×2 (05:44→21:07)
[2017-02-19 07:52] LABS: BASOPHILS % 0.2 % (0.0-2.0); EOSINOPHILS # 0.1 10^3/ul (0.0-0.5); EOSINOPHILS % 1.4 % (0.0-7.0); HEMATOCRIT 26.3 % (37.0-47.0); HEMOGLOBIN 8.5 g/dl (12.0-16.0); LYMPHOCYTES # 1.3 10^3/ul (0.8-2.9); MEAN CORPUSCULAR HEMOGLOBIN 32.6 pg (29.0-33.0); MEAN CORPUSCULAR HGB CONC 32.3 g/dl (32.0-37.0); MEAN CORPUSCULAR VOLUME 100.8 fl (82.0-101.0); MEAN PLATELET VOLUME 11.6 fl (7.4-10.4); MONOCYTE # 0.5 10^3/ul (0.3-0.9); MONOCYTES % 8.6 % (0.0-11.0); NEUTROPHILS % 66.4 % (39.0-77.0); PLATELET COUNT 140 10^3/UL (140-415); RED BLOOD COUNT 2.61 10^6/ul (4.20-5.40); RED CELL DISTRIBUTION WIDTH 16.1 % (11.5-14.5); WHITE BLOOD COUNT 5.6 10^3/ul (4.8-10.8)
[2017-02-19] MEDS: SEVELAMER CARBONATE 0.8 GM PKT PO SCH ×3 (07:55→17:55)
[2017-02-19 08:32] LABS: ALBUMIN 2.7 g/dl (3.3-4.9); ALBUMIN/GLOBULIN RATIO 1.08; BILIRUBIN,INDIRECT 0.2 mg/dl (0-1.1); BILIRUBIN,TOTAL 0.2 mg/dl (0.2-1.3); CREATININE 4.33 mg/dl (0.44-1.00); MAGNESIUM 1.9 mg/dl (1.7-2.5); POTASSIUM 4.6 mmol/L (3.5-5.1); TOTAL PROTEIN 5.2 g/dl (6.1-8.1)
[2017-02-19] MEDS: ASPIRIN (EC) 81 MG TAB PO SCH (08:50)
[2017-02-19] MEDS: FERROUS SULFATE (EC) 325 MG TAB PO SCH (08:50)
[2017-02-19] MEDS: FOLIC ACID 1 MG TAB PO SCH (08:50)
[2017-02-19] MEDS: METOPROLOL 25 MG TAB PO SCH ×2 (08:56→21:08)
[2017-02-19] MEDS: CINACALCET 30 MG TAB PO SCH (08:57)
[2017-02-19] MEDS: CEFTRIAXONE 1 GM/50 ML (PMX) 50 ML IVPB SCH (08:58)
--- NOTE | 2017-02-19 11:30 | PN ---
Date/Time of Note Date/Time of Note DATE: 02/19/17 TIME: 11:29 Assessment/Plan Lines/Catheters IV [facility]from [facility] Saline Lock Assessment/Plan Chief Complaint/Hosp Course Patient is a 66-year-old female who was admitted recently for epigastric and abdominal pain. She has chronic renal failure and is a dialysis patient. She underwent coronary angiography which did not show any critical lesions. The abdomen was further evaluated with MRI and ultrasound. Both studies showed a distended gallbladder but without stones. The patient states that she has no abdominal pain today and is able to eat without any discomfort. She has had no fevers, chills or jaundice Problems: Assessment/Plan Patient is currently down for a HIDA scan Further recommendations to follow Subjective 24 Hr Interval Summary No new complaints Exam/Review of Systems Vital Signs Vitals Vital Signs Date Time Temp Pulse Resp B/P Pulse Ox O2 Delivery O2 Flow Rate FiO2 02/19/17 08:27 83 02/19/17 07:24 97.9 19 128/62 96 02/16/17 13:18 Room Air 02/15/17 22:30 2.0 Intake and Output 02/18/17 02/18/17 02/19/17 15:00 23:00 07:00 Intake Total 600 ml 900 ml 750 ml Balance 600 ml 900 ml 750 ml Results Result Diagram: 02/19/17 0651 02/19/17 0650 JACQUELINE NAJERA MD Feb 19, 2017 11:30
--- NOTE | 2017-02-19 12:45 | RADRPT ---
PROCEDURE: HIDA scan CLINICAL INDICATION: 66 -year-old patient with abdominal pain. TECHNIQUE: Following the intravenous injection of 6.2 mCi of Tc-99m Mebrofenin, multiple anterior dynamic images of the abdomen along with numerous planar spot images of the abdomen were obtained up to 40 minutes post injection. COMPARISON: No prior HIDA scans. FINDINGS: The liver is promptly visualized, demonstrates homogeneous distribution of radionuclide. There is a visualization of the common bile duct, gallbladder and gastrointestinal activity within n ormal time. IMPRESSION: No evidence to suggest the presence of common bile or cystic ducts obstruction. RPTAT: HH .Jessica Tay MD, MD Date Time Electronically viewed and signed by .Jessica Tay MD, MD on 02/19/2017 12:45 .L/
--- NOTE | 2017-02-19 15:14 | CONS ---
Date/Time of Note Date/Time of Note DATE: 02/19/17 TIME: 15:12 Assessment/Plan Assessment/Plan Additional Assessment/Plan Non-ST elevation NC, type II Minimal nonobstructive coronary artery disease cardiac catheterization 02/16/2017 Abdominal and chest pain Preserved ejection fraction End-stage renal disease on hemodialysis SIRS Anemia -Overall feeling better, denies further chest pain, still with intermittent abdominal pain. Undergoing GI and surgery workup. Consultation Date/Type/Reason Admit Date/Time Feb 15, 2017 at 22:49 Initial Consult Date 02/18/17 Type of Consultation: cv Referring Provider: ANA SALAS MD 24 HR Interval Summary Free Text/Dictation Feeling better, abdominal pain has improved but still present at times with eating. Denies chest pain or dizziness Exam/Review of Systems Vital Signs Vitals Vital Signs Date Time Temp Pulse Resp B/P Pulse Ox O2 Delivery O2 Flow Rate FiO2 02/19/17 11:47 97.9 69 19 114/58 98 02/16/17 13:18 Room Air 02/15/17 22:30 2.0 Intake and Output 02/18/17 02/18/17 02/19/17 15:00 23:00 07:00 Intake Total 600 ml 900 ml 750 ml Balance 600 ml 900 ml 750 ml Exam No apparent distress Constitutional: alert, oriented Head: normocephalic Respiratory: other (Coarse breath sounds bilaterally, no wheezing) Cardiovascular: other (S1-S2 heard), regular rate and rhythm Gastrointestinal: bowel sounds, other (Mild discomfort with palpation), soft Extremities: other (No significant edema, right groin is soft, +2 femoral artery pulse, no hematoma felt) Results Result Diagram: 02/19/17 0651 02/19/17 0650 Results 24 hrs Laboratory Tests Test 02/19/17 06:50 02/19/17 06:51 Sodium Level 134 L Potassium Level 4.6 Chloride Level 101 Carbon Dioxide Level 25 Anion Gap 13 Blood Urea Nitrogen 49 #H Creatinine 4.33 #H Glucose Level 91 Calcium Level 9.0 Magnesium Level 1.9 Total Bilirubin 0.2 Direct Bilirubin 0.00 Indirect Bilirubin 0.2 Aspartate Amino Transf (AST/SGOT) 16 Alanine Aminotransferase (ALT/SGPT) 25 Alkaline Phosphatase 469 H Total Protein 5.2 L Albumin 2.7 L Globulin 2.50 Albumin/Globulin Ratio 1.08 White Blood Count 5.6 Red Blood Count 2.61 L Hemoglobin 8.5 L Hematocrit 26.3 L Mean Corpuscular Volume 100.8 Mean Corpuscular Hemoglobin 32.6 Mean Corpuscular Hemoglobin Concent 32.3 Red Cell Distribution Width 16.1 H Platelet Count 140 Mean Platelet Volume 11.6 H Neutrophils % 66.4 Lymphocytes % 23.0 Monocytes % 8.6 Eosinophils % 1.4 Basophils % 0.2 Nucleated Red Blood Cells % 0.0 Neutrophils # (Manual) 3.7 Lymphocytes # 1.3 Monocytes # 0.5 Eosinophils # 0.1 Basophils # 0.0 Nucleated Red Blood Cells # 0.0 Medications Medications Current Medications Ondansetron HCl (Zofran Inj) 4 mg Q6H PRN IV NAUSEA AND/OR VOMITING; Start 02/16 at 02:30 Metoclopramide HCl (Reglan) 10 mg Q6H PRN IV NAUSEA AND/OR VOMITING; Start 02/16 at 02:30 Acetaminophen (Tylenol Tab) 650 mg Q6H PRN PO PAIN LEVEL 1-3 OR FEVER; Start at 02:30 Docusate Sodium (Colace) 100 mg Q12H PRN PO CONSTIPATION; Start 02/16/17 at 02: 30 Bisacodyl (Dulcolax) 5 mg DAILY PRN PO CONSTIPATION; Start 02/16/17 at 02:30 Pantoprazole (Protonix Iv) 40 mg DAILY@06 IV Last administered on 02/19/17 05: 44; Admin Dose 40 MG; Start 02/16/17 at 06:00 Acetaminophen (Tylenol Tab) 650 mg Q6H PRN PO PAIN; Start 02/16/17 at 02:30 Aspirin (Halfprin) 81 mg DAILY PO Last administered on 02/19/17 08:50; Admin Dose 81 MG; Start 02/16/17 at 09:00 Cinacalcet (Sensipar) 60 mg DAILY PO Last administered on 02/19/17 08:57; Admin Dose 60 MG; Start 02/16/17 at 09:00 Folic Acid (Folic Acid) 1 mg DAILY PO Last administered on 02/19/17 08:50; Admin Dose 1 MG; Start 02/16/17 at 09:00 Risperidone (Risperdal) 0.25 mg QHS PO Last administered on 02/18/17 20:51; Admin Dose 0.25 MG; Start 02/16/17 at 21:00 Ferrous Sulfate (Ferrous Sulfate (Ec)) 325 mg DAILY PO Last administered on 08:50; Admin Dose 325 MG; Start 02/16/17 at 09:00 Morphine Sulfate 2 mg 2 mg Q4H PRN IV PAIN Last administered on 02/16/17 04:09 ; Admin Dose 2 MG; Start 02/16/17 at 04:00 Ceftriaxone Sodium (Rocephin) 50 ml @ 100 mls/hr Q24H IVPB Last administered on 02/19/17 08:58; Admin Dose 100 MLS/HR; Start 02/16/17 at 09:00 Metoprolol Tartrate (Lopressor) 25 mg BID PO Last administered on 02/19/17 08: 56; Admin Dose 25 MG; Start 02/16/17 at 09:30 Clonidine (Catapres) 0.1 mg Q6H PRN PO SBP > 160; Start 02/16/17 at 09:30 Atorvastatin Calcium (Lipitor) 20 mg HS PO Last administered on 02/18/17 20:52 ; Admin Dose 20 MG; Start 02/16/17 at 21:00 Nitroglycerin (Nitroglycerin (Sl Tab) 0.4 Mg) 1 tab Q5M PRN SL ANGINA; Start at 09:30 Simethicone (Mylicon) 80 mg Q6H PRN PO DISTENSION/GAS/BLOATING Last administered on 02/17/17 19:36; Admin Dose 80 MG; Start 02/17/17 at 10:00 Gallo Espinoza DO Feb 19, 2017 15:14
--- NOTE | 2017-02-19 15:17 | PN ---
Date/Time of Note Date/Time of Note DATE: 02/19/17 TIME: 15:13 Assessment/Plan VTE Prophylaxis VTE Prophylaxis Intervention: SCD's Lines/Catheters IV [facility] Saline Lock Assessment/Plan Chief Complaint/Hosp Course 1. Epigastric pain with elevated alk phos - GI consulted and appreciate input. Will plan for EGD to see if abnormality causing her chest pain 2. Gallbladder Hydrops - MRCP showed distended gallbladder measuring 10 cm may indicate gallbladder hydrops. Negative for evidence of calculi or gallbladder wall inflammation. - Surgery consulted and appreciate recommendations - HIDA scan today 3. Chest pain s/p cardiac cath - Non-ST elevation RI, type II - s/p cardiac cath that showed minimal nonobstructive coronary artery disease on 02/16/2017 - ECHO showed preserved ejection fraction -Possible GI etiology 4. ESRD on HD -Management per nephrology 5. UTI - Growing Klebsiella sensitive to all antibiotics - Continue Rocephin, on day 4 6. Hypertension -Adjust antihypertensives as needed 7. Microcytic anemia - Follow-up Vit B12, folate and iron profile - stable Prophylaxis: SCDs Problems: Subjective 24 Hr Interval Summary Constitutional: no complaints Exam/Review of Systems Vital Signs Vitals Vital Signs Date Time Temp Pulse Resp B/P Pulse Ox O2 Delivery O2 Flow Rate FiO2 02/19/17 11:47 97.9 69 19 114/58 98 02/16/17 13:18 Room Air 02/15/17 22:30 2.0 Intake and Output 02/18/17 02/18/17 02/19/17 15:00 23:00 07:00 Intake Total 600 ml 900 ml 750 ml Balance 600 ml 900 ml 750 ml Exam Constitutional: alert, oriented Respiratory: clear to auscultation Cardiovascular: regular rate and rhythm Gastrointestinal: soft, No distended Musculoskeletal: nl extremities to inspection Results Result Diagram: 02/19/17 0651 02/19/17 0650 Results 24 hrs Laboratory Tests Test 02/19/17 06:50 02/19/17 06:51 Sodium Level 134 L Potassium Level 4.6 Chloride Level 101 Carbon Dioxide Level 25 Anion Gap 13 Blood Urea Nitrogen 49 #H Creatinine 4.33 #H Glucose Level 91 Calcium Level 9.0 Magnesium Level 1.9 Total Bilirubin 0.2 Direct Bilirubin 0.00 Indirect Bilirubin 0.2 Aspartate Amino Transf (AST/SGOT) 16 Alanine Aminotransferase (ALT/SGPT) 25 Alkaline Phosphatase 469 H Total Protein 5.2 L Albumin 2.7 L Globulin 2.50 Albumin/Globulin Ratio 1.08 White Blood Count 5.6 Red Blood Count 2.61 L Hemoglobin 8.5 L Hematocrit 26.3 L Mean Corpuscular Volume 100.8 Mean Corpuscular Hemoglobin 32.6 Mean Corpuscular Hemoglobin Concent 32.3 Red Cell Distribution Width 16.1 H Platelet Count 140 Mean Platelet Volume 11.6 H Neutrophils % 66.4 Lymphocytes % 23.0 Monocytes % 8.6 Eosinophils % 1.4 Basophils % 0.2 Nucleated Red Blood Cells % 0.0 Neutrophils # (Manual) 3.7 Lymphocytes # 1.3 Monocytes # 0.5 Eosinophils # 0.1 Basophils # 0.0 Nucleated Red Blood Cells # 0.0 Medications Medications Current Medications Ondansetron HCl (Zofran Inj) 4 mg Q6H PRN IV NAUSEA AND/OR VOMITING; Start 02/16 at 02:30 Metoclopramide HCl (Reglan) 10 mg Q6H PRN IV NAUSEA AND/OR VOMITING; Start 02/16 at 02:30 Acetaminophen (Tylenol Tab) 650 mg Q6H PRN PO PAIN LEVEL 1-3 OR FEVER; Start at 02:30 Docusate Sodium (Colace) 100 mg Q12H PRN PO CONSTIPATION; Start 02/16/17 at 02: 30 Bisacodyl (Dulcolax) 5 mg DAILY PRN PO CONSTIPATION; Start 02/16/17 at 02:30 Pantoprazole (Protonix Iv) 40 mg DAILY@06 IV Last administered on 02/19/17 05: 44; Admin Dose 40 MG; Start 02/16/17 at 06:00 Acetaminophen (Tylenol Tab) 650 mg Q6H PRN PO PAIN; Start 02/16/17 at 02:30 Aspirin (Halfprin) 81 mg DAILY PO Last administered on 02/19/17 08:50; Admin Dose 81 MG; Start 02/16/17 at 09:00 Cinacalcet (Sensipar) 60 mg DAILY PO Last administered on 02/19/17 08:57; Admin Dose 60 MG; Start 02/16/17 at 09:00 Folic Acid (Folic Acid) 1 mg DAILY PO Last administered on 02/19/17 08:50; Admin Dose 1 MG; Start 02/16/17 at 09:00 Risperidone (Risperdal) 0.25 mg QHS PO Last administered on 02/18/17 20:51; Admin Dose 0.25 MG; Start 02/16/17 at 21:00 Ferrous Sulfate (Ferrous Sulfate (Ec)) 325 mg DAILY PO Last administered on 08:50; Admin Dose 325 MG; Start 02/16/17 at 09:00 Morphine Sulfate 2 mg 2 mg Q4H PRN IV PAIN Last administered on 02/16/17 04:09 ; Admin Dose 2 MG; Start 02/16/17 at 04:00 Ceftriaxone Sodium (Rocephin) 50 ml @ 100 mls/hr Q24H IVPB Last administered on 02/19/17 08:58; Admin Dose 100 MLS/HR; Start 02/16/17 at 09:00 Metoprolol Tartrate (Lopressor) 25 mg BID PO Last administered on 02/19/17 08: 56; Admin Dose 25 MG; Start 02/16/17 at 09:30 Clonidine (Catapres) 0.1 mg Q6H PRN PO SBP > 160; Start 02/16/17 at 09:30 Atorvastatin Calcium (Lipitor) 20 mg HS PO Last administered on 02/18/17 20:52 ; Admin Dose 20 MG; Start 02/16/17 at 21:00 Nitroglycerin (Nitroglycerin (Sl Tab) 0.4 Mg) 1 tab Q5M PRN SL ANGINA; Start at 09:30 Simethicone (Mylicon) 80 mg Q6H PRN PO DISTENSION/GAS/BLOATING Last administered on 02/17/17 19:36; Admin Dose 80 MG; Start 02/17/17 at 10:00 YULISSA CARTAGENA Feb 19, 2017 15:17
[2017-02-19] MEDS ORDERED: PROPOFOL 40 ML ONE (17:52)
[2017-02-19] MEDS ORDERED: LIDOCAINE 2% (SDV) 5 ML INJ ONE (17:52)
--- NOTE | 2017-02-19 18:09 | PN ---
DATE: 02/19/2017 SUBJECTIVE DATA: Patient is stable. Pending for HIDA scan today. No other events noted. OBJECTIVE DATA: VITAL SIGNS: Blood pressure 120/62, temperature 97.9, pulse 83, and respirations 19. HEENT: head is normocephalic. NECK: Supple. HEART: Regular rate. LUNGS: Diminished breath sounds at the base. ABDOMEN: Soft, nontender to palpation. No rebound or guarding. EXTREMITIES: Negative for clubbing, cyanosis. No edema. DERMATOLOGIC: No rashes. MUSCULOSKELETAL: No joint effusion. NEUROLOGIC: No change in exam. MEDICATIONS: Reviewed. LABORATORY AND DIAGNOSTIC DATA: Sodium 134, potassium 4.6, BUN 49, creatinine 4.33. Alkaline phosphatase 469. White count 5.6, hemoglobin 8.5, hematocrit 26.3, platelet count 140,000. ASSESSMENT AND PLAN: 1. End-stage renal disease. The patient is on dialysis Sunday, and Sunday with access AV fistula. Plan for hemodialysis tomorrow. 2. Anemia. Monitor hemoglobin and hematocrit levels. Continue Epogen with dialysis. 3. Mineral bone disorder. Monitor calcium and phosphorus levels. 4. Urinary tract infection. The patient is completing antibiotic course. 5. Rule out gallbladder hydrops. The patient is pending HIDA scan. Follow up with General Surgery. 6. Hyponatremia, mild. Continue to monitor. Limit free water intake. Dictated By: Yfn Benitez DO /andra/bo /Document#: [id number]
--- NOTE | 2017-02-19 18:19 | OPPN ---
Date/Time of Note Date/Time of Note DATE: 02/19/17 TIME: 18:14 Proc Note GI Procedure date: Feb 19, 2017 Pre-procedure Diagnosis * Atypical chest pain Post-procedure Diagnosis Assessment: * Atypical ulceration in the distal esophagus at approximately 30 cm, circumferential * Moderate distal esophagitis * Moderate erosive gastritis. Rule out H. pylori infection. Biopsies obtained * Duodenitis. Biopsies obtained Plan: * Increase PPI to twice daily * Reglan 10 mg every 6 hours * Carafate 1 g liquid every 6 hours * CT of the chest to rule out mediastinal or lung pathology Surgeon: WINDY HERNANDEZ MD Anesthesia Type: MAC, other (Conscious sedation) Anesthesiologist: MEGAN GAGNON Estimated blood loss: none Transfusion Required: no Specimens #1 Gastric body and antrum #2 Duodenum #3 Esophageal ulcer Grafts/Implants: none Complications: no Pt Condition post procedure: stable Disposition: PACU Procedure Description Preoperative Diagnosis: [] After informed consent, with the patient/relatives understanding the procedure, its indications, potential risks and complications, including but not limited to : allergic reaction, bleeding, perforation or infection, and after all pertinent questions were answered to the patients satisfaction, the patient/ relatives signed witnessed informed consent. Following this, premedication was administered slowly IV push under careful cardiovascular and respiratory monitoring with pulse oximetry, automatic blood pressure, and title abstractor. Once the sedative effect was achieved the patient was place in the left lateral decubitus, the panendoscope was introduced and advanced under visual control. Careful examination of the upper gastrointestinal tract, both on insertion as well as withdrawal of the instrument disclosing the following findings: ESOPHAGUS: the mucosa of the entire esophagus was carefully examined and showed the following findings: There is an area of severe ulceration in the distal esophagus which extends for approximately 5 cm from 30-35 cm, the distal esophagus beyond the ulceration shows moderate erythema and edema of the mucosa but the ulceration does not reach the e.g. junction. Biopsies were obtained. Otherwise the mucosa appears within normal limits. There is no evidence of varices, neoplasm, or stricture. No Hiatal Hernia identified. STOMACH: Upon entrance to the stomach air was insufflated, the gastric harkins distended normally. The mucosa of the fundus, body and antrum of the stomach was carefully examined both head-on and on retroflexion, and showed the following findings: There is significant erythema, edema and erosions of the mucosa of the antrum. Biopsies were obtained to rule out H. pylori infection. Otherwise the mucosa appears within normal limits with no abnormalities. There is no evidence of ulcers or neoplasm. PYLORUS: The pylorus was carefully examined and showed the following findings: the pylorus appears patent and within normal limits, with no evidence of gastric outlet obstruction. DUODENUM: The duodenal mucosa was carefully examined in the duodenal bulb as well as the second portion of the duodenum and showed the following findings: There is erythema and edema of the mucosa and several of the folds are significantly thickened. Biopsies were obtained. Otherwise the mucosa appears unremarkable with no evidence of ulcer or neoplasm. WINDY HERNANDEZ MD Feb 19, 2017 18:19
[2017-02-19] MEDS: SUCRALFATE (100 MG/ML) 10ML CUP PO SCH (21:07)
[2017-02-19] MEDS: RISPERIDONE 0.25 MG TAB PO SCH (21:08)
[2017-02-19] MEDS: ATORVASTATIN 20 MG TAB PO SCH (21:08)
[2017-02-19] MEDS: METOCLOPRAMIDE 10 MG INJ IV SCH (21:08)
[2017-02-20] VITALS (19 sets, daily range): BP systolic 96–135; BP diastolic 49–72; PULSE 73–89; RESP 17–19
[2017-02-20] MEDS: METOCLOPRAMIDE 10 MG INJ IV SCH ×4 (02:30→21:34)
[2017-02-20] MEDS: PANTOPRAZOLE 40 MG INJ IV SCH ×2 (06:26→18:26)
[2017-02-20] MEDS: SEVELAMER CARBONATE 0.8 GM PKT PO SCH ×3 (07:55→18:26)
[2017-02-20 07:57] LABS: BASOPHILS % 0.2 % (0.0-2.0); EOSINOPHILS # 0.1 10^3/ul (0.0-0.5); EOSINOPHILS % 1.1 % (0.0-7.0); HEMOGLOBIN 8.7 g/dl (12.0-16.0); LYMPHOCYTES # 1.3 10^3/ul (0.8-2.9); LYMPHOCYTES % 21.3 % (15.0-51.0); MEAN CORPUSCULAR HEMOGLOBIN 31.6 pg (29.0-33.0); MEAN CORPUSCULAR HGB CONC 31.1 g/dl (32.0-37.0); MEAN CORPUSCULAR VOLUME 101.8 fl (82.0-101.0); MEAN PLATELET VOLUME 11.5 fl (7.4-10.4); MONOCYTE # 0.5 10^3/ul (0.3-0.9); MONOCYTES % 8.2 % (0.0-11.0); NEUTROPHILS % 68.7 % (39.0-77.0); PLATELET COUNT 165 10^3/UL (140-415); RED BLOOD COUNT 2.75 10^6/ul (4.20-5.40); RED CELL DISTRIBUTION WIDTH 15.9 % (11.5-14.5); WHITE BLOOD COUNT 6.1 10^3/ul (4.8-10.8)
[2017-02-20 08:31] LABS: ALBUMIN 2.8 g/dl (3.3-4.9); ALBUMIN/GLOBULIN RATIO 1.16; BILIRUBIN,INDIRECT 0.2 mg/dl (0-1.1); BILIRUBIN,TOTAL 0.2 mg/dl (0.2-1.3); CALCIUM 9.1 mg/dl (8.4-10.2); CREATININE 4.99 mg/dl (0.44-1.00); POTASSIUM 5.1 mmol/L (3.5-5.1); TOTAL PROTEIN 5.2 g/dl (6.1-8.1)
[2017-02-20] MEDS: METOPROLOL 25 MG TAB PO SCH ×2 (09:00→21:35)
[2017-02-20] MEDS: SUCRALFATE (100 MG/ML) 10ML CUP PO SCH ×4 (09:00→21:33)
--- NOTE | 2017-02-20 09:53 | PN ---
DATE: 02/20/2017 SUBJECTIVE DATA: The patient is stable. No events overnight. No fevers, chills, nausea or vomiting. No shortness of breath. The patient is pending hemodialysis today. OBJECTIVE DATA: VITAL SIGNS: Blood pressure is 111/55, pulse 77, respirations 18, temperature 98.3. HEENT: Head is normocephalic. NECK: Supple. HEART: Regular rate. LUNGS: Diminished breath sounds at the base. ABDOMEN: Soft, nontender to palpation. No rebound or guarding. EXTREMITIES: Negative for clubbing, cyanosis. No edema. DERMATOLOGIC: Clean. No rashes. MUSCULOSKELETAL: No joint effusion. NEUROLOGIC: No change in exam. MEDICATIONS: Reviewed. LABORATORY AND DIAGNOSTIC DATA: Reviewed. The patient's sodium 134, BUN 49, creatinine 4.33. ASSESSMENT AND PLAN: 1. End-stage renal disease. Patient is on hemodialysis. Plan for dialysis today. We will dialyze 3 hours, 3K bath, calcium 2.5. 2. Anemia. Monitor hemoglobin and hematocrit levels. Will give Epogen with dialysis. 3. Mineral bone disorder. Monitor calcium and phosphorus levels. 4. Urinary tract infection. The patient is completing an antibiotic course. 5. Peptic ulcer disease. The patient is status post HD with septic ulcer. Continue. 6. Hyponatremia, improved. Dictated By: Yfn Benitez DO /andra/stephanie /Document#: [id number]
[2017-02-20] MEDS: CEFTRIAXONE 1 GM/50 ML (PMX) 50 ML IVPB SCH (13:09)
[2017-02-20] MEDS: ASPIRIN (EC) 81 MG TAB PO SCH (13:09)
[2017-02-20] MEDS: CINACALCET 30 MG TAB PO SCH (13:10)
[2017-02-20] MEDS: FOLIC ACID 1 MG TAB PO SCH (13:10)
[2017-02-20] MEDS: FERROUS SULFATE (EC) 325 MG TAB PO SCH (13:10)
--- NOTE | 2017-02-20 15:10 | CONS ---
Date/Time of Note Date/Time of Note DATE: 02/20/17 TIME: 15:09 Assessment/Plan Assessment/Plan Additional Assessment/Plan Non-ST elevation GA, type II Minimal nonobstructive coronary artery disease cardiac catheterization 02/16/2017 Abdominal and chest pain Preserved ejection fraction End-stage renal disease on hemodialysis SIRS Anemia -Overall feeling better, denies further chest pain, still with intermittent abdominal pain but improved. Undergoing GI and surgery workup. No further inpatient cardiac workup needed at the current time Consultation Date/Type/Reason Admit Date/Time Feb 15, 2017 at 22:49 Initial Consult Date 02/18/17 Type of Consultation: cv Referring Provider: ANA SALAS MD 24 HR Interval Summary Free Text/Dictation Denies chest pain, shortness of breath or dizziness Exam/Review of Systems Vital Signs Vitals Vital Signs Date Time Temp Pulse Resp B/P Pulse Ox O2 Delivery O2 Flow Rate FiO2 02/20/17 12:32 83 02/20/17 12:20 19 02/20/17 11:45 98.3 96/52 97 02/19/17 18:41 Nasal Cannula 2.0 Intake and Output 02/19/17 02/19/17 02/20/17 15:00 23:00 07:00 Intake Total 50 ml 600 ml Balance 50 ml 600 ml Exam No apparent distress Constitutional: alert, oriented Head: normocephalic Respiratory: other (Coarse breath sounds bilaterally, no wheezing) Cardiovascular: other (S1-S2 heard), regular rate and rhythm Gastrointestinal: bowel sounds, non-tender, soft Extremities: edema (Trace) Results Result Diagram: 02/20/17 0719 02/20/17 0719 Results 24 hrs Laboratory Tests Test 02/20/17 07:14 02/20/17 07:19 Lab Scanned Report REFERENCE LAB White Blood Count 6.1 Red Blood Count 2.75 L Hemoglobin 8.7 L Hematocrit 28.0 L Mean Corpuscular Volume 101.8 H Mean Corpuscular Hemoglobin 31.6 Mean Corpuscular Hemoglobin Concent 31.1 L Red Cell Distribution Width 15.9 H Platelet Count 165 Mean Platelet Volume 11.5 H Neutrophils % 68.7 Lymphocytes % 21.3 Monocytes % 8.2 Eosinophils % 1.1 Basophils % 0.2 Nucleated Red Blood Cells % 0.0 Neutrophils # (Manual) 4.2 Lymphocytes # 1.3 Monocytes # 0.5 Eosinophils # 0.1 Basophils # 0.0 Nucleated Red Blood Cells # 0.0 Sodium Level 133 L Potassium Level 5.1 Chloride Level 103 Carbon Dioxide Level 23 Anion Gap 12 Blood Urea Nitrogen 63 H Creatinine 4.99 H Glucose Level 89 Calcium Level 9.1 Total Bilirubin 0.2 Direct Bilirubin 0.00 Indirect Bilirubin 0.2 Aspartate Amino Transf (AST/SGOT) 15 Alanine Aminotransferase (ALT/SGPT) 21 Alkaline Phosphatase 504 H Total Protein 5.2 L Albumin 2.8 L Globulin 2.40 Albumin/Globulin Ratio 1.16 Medications Medications Current Medications Ondansetron HCl (Zofran Inj) 4 mg Q6H PRN IV NAUSEA AND/OR VOMITING; Start 02/16 at 02:30 Acetaminophen (Tylenol Tab) 650 mg Q6H PRN PO PAIN LEVEL 1-3 OR FEVER; Start at 02:30 Docusate Sodium (Colace) 100 mg Q12H PRN PO CONSTIPATION; Start 02/16/17 at 02: 30 Bisacodyl (Dulcolax) 5 mg DAILY PRN PO CONSTIPATION; Start 02/16/17 at 02:30 Acetaminophen (Tylenol Tab) 650 mg Q6H PRN PO PAIN; Start 02/16/17 at 02:30 Aspirin (Halfprin) 81 mg DAILY PO Last administered on 02/20/17 13:09; Admin Dose 81 MG; Start 02/16/17 at 09:00 Cinacalcet (Sensipar) 60 mg DAILY PO Last administered on 02/20/17 13:10; Admin Dose 60 MG; Start 02/16/17 at 09:00 Folic Acid (Folic Acid) 1 mg DAILY PO Last administered on 02/20/17 13:10; Admin Dose 1 MG; Start 02/16/17 at 09:00 Risperidone (Risperdal) 0.25 mg QHS PO Last administered on 02/19/17 21:08; Admin Dose 0.25 MG; Start 02/16/17 at 21:00 Ferrous Sulfate (Ferrous Sulfate (Ec)) 325 mg DAILY PO Last administered on 13:10; Admin Dose 325 MG; Start 02/16/17 at 09:00 Morphine Sulfate 2 mg 2 mg Q4H PRN IV PAIN Last administered on 02/16/17 04:09 ; Admin Dose 2 MG; Start 02/16/17 at 04:00 Ceftriaxone Sodium (Rocephin) 50 ml @ 100 mls/hr Q24H IVPB Last administered on 02/20/17 13:09; Admin Dose 100 MLS/HR; Start 02/16/17 at 09:00 Metoprolol Tartrate (Lopressor) 25 mg BID PO Last administered on 02/19/17 21: 08; Admin Dose 25 MG; Start 02/16/17 at 09:30 Clonidine (Catapres) 0.1 mg Q6H PRN PO SBP > 160; Start 02/16/17 at 09:30 Atorvastatin Calcium (Lipitor) 20 mg HS PO Last administered on 02/19/17 21:08 ; Admin Dose 20 MG; Start 02/16/17 at 21:00 Nitroglycerin (Nitroglycerin (Sl Tab) 0.4 Mg) 1 tab Q5M PRN SL ANGINA; Start at 09:30 Simethicone (Mylicon) 80 mg Q6H PRN PO DISTENSION/GAS/BLOATING Last administered on 02/17/17 19:36; Admin Dose 80 MG; Start 02/17/17 at 10:00 Metoclopramide HCl (Reglan) 10 mg Q6H IV Last administered on 02/20/17 14:43; Admin Dose 10 MG; Start 02/19/17 at 20:30 Pantoprazole (Protonix Iv) 40 mg ,18 IV Last administered on 02/20/17 06:26 ; Admin Dose 40 MG; Start 02/19/17 at 21:00 Sucralfate (Carafate Susp) 1 gm QID PO Last administered on 02/20/17 13:09; Admin Dose 1 GM; Start 02/19/17 at 21:00 Gallo Espinoza DO Feb 20, 2017 15:10
--- NOTE | 2017-02-20 15:40 | PN ---
Date/Time of Note Date/Time of Note DATE: 02/20/17 TIME: 15:36 Assessment/Plan VTE Prophylaxis VTE Prophylaxis Intervention: SCD's Lines/Catheters IV [facility] (from [facility] Assessment/Plan Chief Complaint/Hosp Course 1. Epigastric pain secondary to atypical esophageal ulcer -Status post EGD, continue double dose PPI -CT chest to evaluate for lung pathology 2. Gallbladder Hydrops - MRCP showed distended gallbladder measuring 10 cm may indicate gallbladder hydrops. Negative for evidence of calculi or gallbladder wall inflammation. - Surgery consulted and appreciate recommendations - HIDA scan negative 3. Chest pain s/p cardiac cath-etiology likely GI in nature - Non-ST elevation PA, type II - s/p cardiac cath that showed minimal nonobstructive coronary artery disease on 02/16/2017 - ECHO showed preserved ejection fraction 4. ESRD on HD -Management per nephrology 5. UTI - Growing Klebsiella sensitive to all antibiotics -Status post 5 days of Rocephin, DC Rocephin 6. Hypertension -Adjust antihypertensives as needed 7. Macrocytic anemia-stable -Vit B12, folate are normal as his iron profile Prophylaxis: SCDs Discharge: Anticipate DC in 1-2 days Problems: Subjective 24 Hr Interval Summary Constitutional: no complaints Exam/Review of Systems Vital Signs Vitals Vital Signs Date Time Temp Pulse Resp B/P Pulse Ox O2 Delivery O2 Flow Rate FiO2 02/20/17 15:23 98.8 83 17 111/53 99 02/19/17 18:41 Nasal Cannula 2.0 Intake and Output 02/19/17 02/19/17 02/20/17 15:00 23:00 07:00 Intake Total 50 ml 600 ml Balance 50 ml 600 ml Exam Constitutional: alert Respiratory: clear to auscultation Cardiovascular: regular rate and rhythm Gastrointestinal: soft, No distended Musculoskeletal: nl extremities to inspection Results Result Diagram: 02/20/17 0719 02/20/17 0719 Results 24 hrs Laboratory Tests Test 02/20/17 07:14 02/20/17 07:19 Lab Scanned Report REFERENCE LAB White Blood Count 6.1 Red Blood Count 2.75 L Hemoglobin 8.7 L Hematocrit 28.0 L Mean Corpuscular Volume 101.8 H Mean Corpuscular Hemoglobin 31.6 Mean Corpuscular Hemoglobin Concent 31.1 L Red Cell Distribution Width 15.9 H Platelet Count 165 Mean Platelet Volume 11.5 H Neutrophils % 68.7 Lymphocytes % 21.3 Monocytes % 8.2 Eosinophils % 1.1 Basophils % 0.2 Nucleated Red Blood Cells % 0.0 Neutrophils # (Manual) 4.2 Lymphocytes # 1.3 Monocytes # 0.5 Eosinophils # 0.1 Basophils # 0.0 Nucleated Red Blood Cells # 0.0 Sodium Level 133 L Potassium Level 5.1 Chloride Level 103 Carbon Dioxide Level 23 Anion Gap 12 Blood Urea Nitrogen 63 H Creatinine 4.99 H Glucose Level 89 Calcium Level 9.1 Total Bilirubin 0.2 Direct Bilirubin 0.00 Indirect Bilirubin 0.2 Aspartate Amino Transf (AST/SGOT) 15 Alanine Aminotransferase (ALT/SGPT) 21 Alkaline Phosphatase 504 H Total Protein 5.2 L Albumin 2.8 L Globulin 2.40 Albumin/Globulin Ratio 1.16 Medications Medications Current Medications Ondansetron HCl (Zofran Inj) 4 mg Q6H PRN IV NAUSEA AND/OR VOMITING; Start 02/16 at 02:30 Acetaminophen (Tylenol Tab) 650 mg Q6H PRN PO PAIN LEVEL 1-3 OR FEVER; Start at 02:30 Docusate Sodium (Colace) 100 mg Q12H PRN PO CONSTIPATION; Start 02/16/17 at 02: 30 Bisacodyl (Dulcolax) 5 mg DAILY PRN PO CONSTIPATION; Start 02/16/17 at 02:30 Acetaminophen (Tylenol Tab) 650 mg Q6H PRN PO PAIN; Start 02/16/17 at 02:30 Aspirin (Halfprin) 81 mg DAILY PO Last administered on 02/20/17 13:09; Admin Dose 81 MG; Start 02/16/17 at 09:00 Cinacalcet (Sensipar) 60 mg DAILY PO Last administered on 02/20/17 13:10; Admin Dose 60 MG; Start 02/16/17 at 09:00 Folic Acid (Folic Acid) 1 mg DAILY PO Last administered on 02/20/17 13:10; Admin Dose 1 MG; Start 02/16/17 at 09:00 Risperidone (Risperdal) 0.25 mg QHS PO Last administered on 02/19/17 21:08; Admin Dose 0.25 MG; Start 02/16/17 at 21:00 Ferrous Sulfate (Ferrous Sulfate (Ec)) 325 mg DAILY PO Last administered on 13:10; Admin Dose 325 MG; Start 02/16/17 at 09:00 Morphine Sulfate 2 mg 2 mg Q4H PRN IV PAIN Last administered on 02/16/17 04:09 ; Admin Dose 2 MG; Start 02/16/17 at 04:00 Ceftriaxone Sodium (Rocephin) 50 ml @ 100 mls/hr Q24H IVPB Last administered on 02/20/17 13:09; Admin Dose 100 MLS/HR; Start 02/16/17 at 09:00 Metoprolol Tartrate (Lopressor) 25 mg BID PO Last administered on 02/19/17 21: 08; Admin Dose 25 MG; Start 02/16/17 at 09:30 Clonidine (Catapres) 0.1 mg Q6H PRN PO SBP > 160; Start 02/16/17 at 09:30 Atorvastatin Calcium (Lipitor) 20 mg HS PO Last administered on 02/19/17 21:08 ; Admin Dose 20 MG; Start 02/16/17 at 21:00 Nitroglycerin (Nitroglycerin (Sl Tab) 0.4 Mg) 1 tab Q5M PRN SL ANGINA; Start at 09:30 Simethicone (Mylicon) 80 mg Q6H PRN PO DISTENSION/GAS/BLOATING Last administered on 02/17/17 19:36; Admin Dose 80 MG; Start 02/17/17 at 10:00 Metoclopramide HCl (Reglan) 10 mg Q6H IV Last administered on 02/20/17 14:43; Admin Dose 10 MG; Start 02/19/17 at 20:30 Pantoprazole (Protonix Iv) 40 mg 06,18 IV Last administered on 02/20/17 06:26 ; Admin Dose 40 MG; Start 02/19/17 at 21:00 Sucralfate (Carafate Susp) 1 gm QID PO Last administered on 02/20/17 13:09; Admin Dose 1 GM; Start 02/19/17 at 21:00 YULISSA CARTAGENA Feb 20, 2017 15:40
--- NOTE | 2017-02-20 16:10 | PN ---
Date/Time of Note Date/Time of Note DATE: 02/20/17 TIME: 16:09 Assessment/Plan Lines/Catheters IV [facility] Type (from [facility] Saline [facility] Assessment/Plan Chief Complaint/Hosp Course Patient is a 66-year-old female who was admitted recently for epigastric and abdominal pain. She has chronic renal failure and is a dialysis patient. She underwent coronary angiography which did not show any critical lesions. The abdomen was further evaluated with MRI and ultrasound. Both studies showed a distended gallbladder but without stones. The patient states that she has no abdominal pain today and is able to eat without any discomfort. She has had no fevers, chills or jaundice Problems: Assessment/Plan No surgical issues. Will sign off Subjective 24 Hr Interval Summary HIDA scan is negative Exam/Review of Systems Vital Signs Vitals Vital Signs Date Time Temp Pulse Resp B/P Pulse Ox O2 Delivery O2 Flow Rate FiO2 02/20/17 15:23 98.8 83 17 111/53 99 02/19/17 18:41 Nasal Cannula 2.0 Intake and Output 02/19/17 02/19/17 02/20/17 15:00 23:00 07:00 Intake Total 50 ml 600 ml Balance 50 ml 600 ml Results Result Diagram: 02/20/17 0719 02/20/17 0719 JACQUELINE NAJERA MD Feb 20, 2017 16:10
[2017-02-20] MEDS: ATORVASTATIN 20 MG TAB PO SCH (21:33)
[2017-02-20] MEDS: RISPERIDONE 0.25 MG TAB PO SCH (21:35)
[2017-02-21] VITALS (11 sets, daily range): BP systolic 96–165; BP diastolic 53–72; PULSE 75–83; RESP 17–19
[2017-02-21] MEDS: METOCLOPRAMIDE 10 MG INJ IV SCH ×4 (03:30→20:50)
[2017-02-21] MEDS: PANTOPRAZOLE 40 MG INJ IV SCH (06:48)
[2017-02-21] MEDS: SEVELAMER CARBONATE 0.8 GM PKT PO SCH ×3 (07:55→18:50)
[2017-02-21] MEDS: FOLIC ACID 1 MG TAB PO SCH (09:00)
[2017-02-21] MEDS: METOPROLOL 25 MG TAB PO SCH ×2 (09:00→20:50)
[2017-02-21] MEDS: SUCRALFATE (100 MG/ML) 10ML CUP PO SCH ×4 (09:00→20:50)
[2017-02-21] MEDS: CINACALCET 30 MG TAB PO SCH (09:00)
[2017-02-21] MEDS: ASPIRIN (EC) 81 MG TAB PO SCH (09:00)
[2017-02-21] MEDS ORDERED: SOD CHLORIDE 0.9% 100 ML ONE (09:12)
[2017-02-21] MEDS ORDERED: IODIXANOL LOCM 100 ML BTL ONE (09:12)
--- NOTE | 2017-02-21 10:48 | RADRPT ---
PROCEDURE: CT Chest with contrast. CLINICAL INDICATION: Atypical esophageal ulcer. TECHNIQUE: CT scan of the chest with contrast was performed following the uncomplicated intravenou s administration of 85 cc of Visipaque 320. Coronal and sagittal reformatted images were obtained f rom the axial source images. Images were reviewed on a high-resolution PACS workstation. CTDIvol (mG y): 11.21; Total Exam DLP (mGy-cm): 453.12. One or more of the following dose reduction techniques were utilized: - Automated exposure control. - Adjustment of the mA and/or kV according to patient size. - Use of iterative reconstruction technique. COMPARISON: MRI abdomen and abdominal ultrasound 02/16/2017. FINDINGS: Limited imaging of the lower neck demonstrates a heterogeneous thyroid gland with a 2.1 x 1.0 x 1.5 cm hypodense nodule. There is an adjacent 1.8 x 0.7 x 1.1 cm solid nodule. The heart is mildly enlarged. There is no pericardial effusion. There is no mediastinal, hilar or axillary lymphadenopathy. The thoracic aorta is normal in caliber. Mild atherosclerotic calcificat ion is observed. The pulmonary arteries are not enlarged. The esophagus is collapsed. There is no pa ra-esophageal abnormality. There is a 6 mm solid nodule within the posterior aspect of the right lower lobe (4-70). Scattered m ild scarring is seen within the lung bases. Pleuroparenchymal scarring is seen within the left lung base. There is no pulmonary consolidation or pleural effusion. The tracheobronchial tree is normal i n caliber. Limited imaging of the upper abdomen demonstrates marked right renal atrophy. Atrophy of the visuali zed portion of the left kidney is observed. There is an amorphous partially calcified structure imme diately adjacent to the left kidney which may reflect an atrophic upper pole moiety. A normal left a drenal gland is not identified. The right adrenal gland is normal. The gallbladder is mildly distend ed and grossly unchanged. Diffuse sclerosis of the osseous structures is observed and may be related to renal disease given th e appearance of the kidneys. Degenerative changes of the spine are present. Body wall soft tissues a re unremarkable. IMPRESSION: No evidence of mass, lymphadenopathy or acute inflammatory process of the chest. Bibasilar scarring with pleuroparenchymal scarring of the left lung base. Tiny solid pulmonary nodule of the right lower lobe. Using current flasher criteria, follow-up may b e obtained in 6-12 months. Heterogeneous hypodense 2.1 cm right thyroid nodule with adjacent 1.8 cm solid nodule. Correlate wit h thyroid imaging if performed in the past. If not, recommend follow up with dedicated thyroid ultra sound. Marked right renal atrophy. Atrophy of the visualized portion of the left kidney is also observed wi th a presumed scarred and atrophic upper pole moiety. Cardiomegaly and thoracic aortic atherosclerosis. RPTAT: HLST .Kelly Lazo MD, Date Time Electronically viewed and signed by .Kelly Lazo MD, on 02/21/2017 10:48 .T/
--- NOTE | 2017-02-21 10:53 | PN ---
DATE: 02/21/2017 SUBJECTIVE DATA: The patient is stable. No events overnight. No fevers, chills, nausea, vomiting. OBJECTIVE DATA: VITAL SIGNS: Blood pressure 116/56, respirations 17, pulse 66, temperature 97.1. HEENT: Head is normocephalic. NECK: Supple. HEART: Regular rate. LUNGS: Diminished breath sounds at the base. ABDOMEN: Soft. Nontender to palpation. No rebound or guarding. EXTREMITIES: Negative for clubbing, cyanosis. No edema. DERMATOLOGIC: Clean. No rashes. MUSCULOSKELETAL: No joint effusion. NEUROLOGIC: Unchanged exam. MEDICATIONS: The patient's medications have been reviewed. LABORATORY AND DIAGNOSTIC DATA: Have been reviewed. No new labs. ASSESSMENT AND PLAN: 1. End-stage renal disease. Plan for hemodialysis tomorrow. 2. Anemia. Continue to monitor H and H levels. Continue Epogen. 3. Mineral bone disorder. We will continue to monitor calcium and phosphorus levels. 4. Urinary tract infection. The patient is completing antibiotic course. 5. Peptic ulcer disease. Continue medical management. 6. Hyponatremia, improved. Dictated By: Yfn Benitez DO /andra/bianca /Document#: [id number]
[2017-02-21] MEDS: FERROUS SULFATE (EC) 325 MG TAB PO SCH (12:55)
--- NOTE | 2017-02-21 15:08 | PN ---
Date/Time of Note Date/Time of Note DATE: 02/21/17 TIME: 15:04 Assessment/Plan VTE Prophylaxis VTE Prophylaxis Intervention: SCD's Lines/Catheters IV Catheter Type (from [facility]rs[facility]): Saline Lock Assessment/Plan Assessment/Plan Assessment: * Atypical ulceration in the distal esophagus at approximately 30 cm, circumferential * Moderate distal esophagitis * Moderate erosive gastritis. Rule out H. pylori infection. Biopsies obtained * Duodenitis. Biopsies obtained Plan: * Increase PPI to twice daily * Reglan 10 mg every 6 hours * Carafate 1 g liquid every 6 hours * Case discussed with Dr Gamble * Further orders will depend on clinical course Subjective 24 Hr Interval Summary Free Text/Dictation * Course reviewed with RN * Patient seen and examined * No untoward events overnight Exam/Review of Systems Vital Signs Vitals Vital Signs Date Time Temp Pulse Resp B/P Pulse Ox O2 Delivery O2 Flow Rate FiO2 02/21/17 12:35 83 02/21/17 11:27 98.5 18 96/67 92 02/19/17 18:41 Nasal Cannula 2.0 Intake and Output 02/20/17 02/20/17 02/21/17 15:00 23:00 07:00 Intake Total 300 ml 50 ml 120 ml Output Total 3300 ml Balance -3000 ml 50 ml 120 ml Exam Constitutional: alert, oriented Respiratory: clear to auscultation, normal air movement Cardiovascular: nl pulses, regular rate and rhythm Musculoskeletal: nl extremities to inspection, nl gait and stance Extremities: normal pulses Neurological: nl speech, nl strength Skin: nl turgor, rash or lesions Results Result Diagram: 02/20/17 0719 02/20/17718 Medications Medications Current Medications Ondansetron HCl (Zofran Inj) 4 mg Q6H PRN IV NAUSEA AND/OR VOMITING; Start 02/16 at 02:30 Acetaminophen (Tylenol Tab) 650 mg Q6H PRN PO PAIN LEVEL 1-3 OR FEVER; Start at 02:30 Docusate Sodium (Colace) 100 mg Q12H PRN PO CONSTIPATION; Start 02/16/17 at 02: 30 Bisacodyl (Dulcolax) 5 mg DAILY PRN PO CONSTIPATION; Start 02/16/17 at 02:30 Acetaminophen (Tylenol Tab) 650 mg Q6H PRN PO PAIN; Start 02/16/17 at 02:30 Aspirin (Halfprin) 81 mg DAILY PO Last administered on 02/21/17 09:00; Admin Dose 81 MG; Start 02/16/17 at 09:00 Cinacalcet (Sensipar) 60 mg DAILY PO Last administered on 02/21/17 09:00; Admin Dose 60 MG; Start 02/16/17 at 09:00 Folic Acid (Folic Acid) 1 mg DAILY PO Last administered on 02/21/17 09:00; Admin Dose 1 MG; Start 02/16/17 at 09:00 Risperidone (Risperdal) 0.25 mg QHS PO Last administered on 02/20/17 21:35; Admin Dose 0.25 MG; Start 02/16/17 at 21:00 Ferrous Sulfate (Ferrous Sulfate (Ec)) 325 mg DAILY PO Last administered on 12:55; Admin Dose 325 MG; Start 02/16/17 at 09:00 Morphine Sulfate (morphine) 2 mg Q4H PRN IV PAIN Last administered on 02/16/17 04:09; Admin Dose 2 MG; Start 02/16/17 at 04:00 Metoprolol Tartrate (Lopressor) 25 mg BID PO Last administered on 02/20/17 21: 35; Admin Dose 25 MG; Start 02/16/17 at 09:30 Clonidine (Catapres) 0.1 mg Q6H PRN PO SBP > 160; Start 02/16/17 at 09:30 Atorvastatin Calcium (Lipitor) 20 mg HS PO Last administered on 02/20/17 21:33 ; Admin Dose 20 MG; Start 02/16/17 at 21:00 Nitroglycerin (Nitroglycerin (Sl Tab) 0.4 Mg) 1 tab Q5M PRN SL ANGINA; Start at 09:30 Simethicone (Mylicon) 80 mg Q6H PRN PO DISTENSION/GAS/BLOATING Last administered on 02/20/17 18:26; Admin Dose 80 MG; Start 02/17/17 at 10:00 Metoclopramide HCl (Reglan) 10 mg Q6H IV Last administered on 02/21/17 03:30; Admin Dose 10 MG; Start 02/19/17 at 20:30 Sucralfate (Carafate Susp) 1 gm QID PO Last administered on 02/21/17t 12:58; Admin Dose 1 GM; Start 02/19/17 at 21:00 Pantoprazole (Protonix Tab) 40 mg BID@,18 PO ; Start 02/21/17 at 18:00 SONYA SABA NP Feb 21, 2017 15:08
--- NOTE | 2017-02-21 15:40 | RADRPT ---
PROCEDURE: US Thyroid. CLINICAL INDICATION: Thyroid nodule. Palpable fullness. TECHNIQUE: Multiple sonographic images of the thyroid were obtained. Transverse and sagittal imagi ng of the gland and paige-thyroidal tissues was performed with a high frequency linear array transduc er. Color interrogation was performed as well. The images were reviewed on a PACS workstation. COMPARISON: No prior studies are available for comparison. FINDINGS: Thyroid Size: Right lobe: 3.5 x 1.5 x 2.0 cm Left lobe: 3.6 x 1.6 x 1.5 cm Appearance: Echogenicity: Mildly diffusely heterogeneous. Vascularity: Normal The thyroid is normal in size. Several small cystic nodules are present bilaterally, all measuring l ess than 0.3 cm. IMPRESSION: 1. Mildly diffusely heterogeneous thyroid. 2. Small benign cystic nodules bilaterally. No further evaluation required. 3. Otherwise unremarkable thyroid ultrasound. 4. TI-RADS 1. RPTAT: PP TI-RADS 1: Benign, <2% malignancy risk: No FNA TI-RADS 2: Not suspicious, <2% malignancy risk: No FNA TI-RADS 3: Mildly suspicious, 5% malignancy risk: FNA if ? 2.5 cm TI-RADS 4: Moderately suspicious, 5-20% malignancy risk: FNA if ? 1.5 cm TI-RADS 5: Highly suspicious, >20% malignancy risk: FNA if ? 1.0 cm .Magdi Dao MD, Date Time Electronically viewed and signed by .Magdi Dao MD, on 02/21/2017 15:39 .R/
[2017-02-21] MEDS ORDERED: CARAS PO (16:02)
[2017-02-21] MEDS ORDERED: MYL80 PO (16:02)
[2017-02-21] MEDS ORDERED: PANT40TA4 PO (16:02)
[2017-02-21] MEDS ORDERED: PANTOPRAZOLE (EC) 40 MG TAB PO SCH (18:00)
--- NOTE | 2017-02-21 18:17 | DS ---
Date/Time of Note Date/Time of Note DATE: 02/21/17 TIME: 18:10 Discharge Summary Admission/Discharge Info Admit Date/Time Feb 15, 2017 at 22:49 Discharge Date/Time February 21, 2017 Discharge Diagnosis 1. Epigastric pain secondary to atypical esophageal ulcer -Status post EGD, DC with double dose PPI and Carafate -CT chest shows no significant findings, does show some thyroid nodules but ultrasound of the thyroid showed no significant findings 2. Gallbladder Hydrops - MRCP showed distended gallbladder measuring 10 cm may indicate gallbladder hydrops. Negative for evidence of calculi or gallbladder wall inflammation. - Surgery consulted and appreciate recommendations, no surgery indicated - HIDA scan negative 3. Chest pain s/p cardiac cath-etiology likely GI in nature - Non-ST elevation [place], type II - s/p cardiac cath that showed minimal nonobstructive coronary artery disease on 02/16/2017 - ECHO showed preserved ejection fraction 4. ESRD on HD -Further dialysis per nephrology 5. UTI - Growing Klebsiella sensitive to all antibiotics -Status post 5 days of Rocephin 6. Hypertension -Continue home meds 7. 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 Patient did have a non-STEMI did have a heart cath which showed minimal coronary lesions. Patient's pain was felt to be GI in nature she had an EGD that showed an atypical esophageal ulcer, patient was started on dual PPI therapy and Carafate. She did have a CT chest that showed questionable thyroid nodules, follow-up ultrasound of thyroid was done which showed no significant findings. Patient did receive dialysis in house. Patient abdominal pain and chest pain's did resolve and on the day of discharge patient's vitals, labs and physical exam are stable she had no further acute complaints and questions are answered. Patient was discharged back to her residential care facility. Home Meds Active Scripts Sucralfate* (Carafate*) 1 Gm/10 Ml Susp, 1 GM PO QID for 30 Days, #120 BOTTLE Prov:YULISSA CARTAGENA 02/21/17 Simethicone* (Mylicon*) 80 Mg Tab, 80 MG PO Q6H Y for DISTENSION/GAS/BLOATING, # 60 TAB Prov:YULISSA CARTAGENA 02/21/17 Pantoprazole* (Pantoprazole*) 40 Mg Tablet., 40 MG PO BID@,18 for 30 Days, # 60 TAB Prov:YULISSA CARTAGENA 02/21/17 Reported Medications Ferrous Sulfate (Iron) 325 Mg Capsule.er, 325 MG PO DAILY, CAP 02/15/17 Ondansetron Hcl* (Zofran*) 4 Mg Tablet, 4 MG PO Q6H Y for NAUSEA AND OR VOMITING , TAB 02/15/17 Tizanidine Hcl* (Tizanidine Hcl*) 4 Mg Capsule, 4 MG PO DAILY Y for SPASTICITY, CAP 02/15/17 Cinacalcet* (Sensipar*) 60 Mg Tablet, 60 MG PO DAILY, TAB 02/15/17 Risperidone* (Risperdal*) 0.25 Mg Tablet, 0.25 MG PO QHS, TAB 02/15/17 Sevelamer Carbonate* (Renvela*) 800 Mg Tablet, 0.8 GM PO WITH MEALS, TAB 02/15/17 Multivit/Ca Carb/B Cmplx/Fa* (Chrissy-Yvonne*) 1 Tab Tab, 1 TAB PO DAILY, TAB 02/15/17 Protein Supplement (Promod) 946 Ml Liquid, 30 ML PO TID 02/15/17 Folic Acid* (Folic Acid*) 1 Mg Tablet, 1 MG PO DAILY, TAB 02/15/17 Docusate Sodium* (Docusate Sodium*) 100 Mg Capsule, 100 MG PO QHS, #30 CAP 02/15/17 Aspirin* (Aspirin* EC) 81 Mg Tablet.dr, 81 MG PO DAILY, TAB 02/15/17 Acetaminophen* (Acetaminophen*) 650 Mg Tablet, 650 MG PO Q6H Y for PAIN, #30 TAB FOR TEMP MORE THAN 100 02/15/17 Follow-up Plan Follow with primary care physician in 1-2 weeks, follow-up with hemodialysis center as scheduled Primary Care Provider Care Physician No Primary Time spent on discharge: > 30 minutes YULISSA CARTAGENA Feb 21, 2017 18:17
--- NOTE | 2017-02-21 19:57 | CONS ---
Date/Time of Note Date/Time of Note DATE: 02/21/17 TIME: 19:56 Assessment/Plan Assessment/Plan Additional Assessment/Plan Non-ST elevation [place], type II Minimal nonobstructive coronary artery disease cardiac catheterization 02/16/2017 Abdominal and chest pain Preserved ejection fraction End-stage renal disease on hemodialysis SIRS Anemia -Overall feeling better, denies further chest pain, still with intermittent abdominal pain but improved. Undergoing GI and surgery workup. No further inpatient cardiac workup needed at the current time Consultation Date/Type/Reason Admit Date/Time Feb 15, 2017 at 22:49 Initial Consult Date 02/18/17 Type of Consultation: cv Referring Provider: ANA SALAS MD 24 HR Interval Summary Free Text/Dictation Denies shortness of breath, chest pain or palpitations Exam/Review of Systems Vital Signs Vitals Vital Signs Date Time Temp Pulse Resp B/P Pulse Ox O2 Delivery O2 Flow Rate FiO2 02/21/17 19:48 98.1 85 19 108/54 98 02/19/17 18:41 Nasal Cannula 2.0 Intake and Output 02/20/17 02/20/17 02/21/17 15:00 23:00 07:00 Intake Total 300 ml 50 ml 120 ml Output Total 3300 ml Balance -3000 ml 50 ml 120 ml Exam No apparent distress Constitutional: alert, oriented Head: normocephalic Respiratory: other (Coarse breath sounds bilaterally, no wheezing) Cardiovascular: other (S1-S2 heard), regular rate and rhythm Gastrointestinal: bowel sounds, non-tender, soft Extremities: edema (Trace) Results Result Diagram: 02/20/1771802/20/17718 Medications Medications Current Medications Ondansetron HCl (Zofran Inj) 4 mg Q6H PRN IV NAUSEA AND/OR VOMITING; Start 02/16 at 02:30 Acetaminophen (Tylenol Tab) 650 mg Q6H PRN PO PAIN LEVEL 1-3 OR FEVER Last administered on 02/21/17t 15:40; Admin Dose 650 MG; Start 02/16/17 at 02:30 Docusate Sodium (Colace) 100 mg Q12H PRN PO CONSTIPATION; Start 02/16/17 at 02: 30 Bisacodyl (Dulcolax) 5 mg DAILY PRN PO CONSTIPATION; Start 02/16/17 at 02:30 Acetaminophen (Tylenol Tab) 650 mg Q6H PRN PO PAIN; Start 02/16/17 at 02:30 Aspirin (Halfprin) 81 mg DAILY PO Last administered on 02/21/17 09:00; Admin Dose 81 MG; Start 02/16/17 at 09:00 Cinacalcet (Sensipar) 60 mg DAILY PO Last administered on 02/21/17 09:00; Admin Dose 60 MG; Start 02/16/17 at 09:00 Folic Acid (Folic Acid) 1 mg DAILY PO Last administered on 02/21/17 09:00; Admin Dose 1 MG; Start 02/16/17 at 09:00 Risperidone (Risperdal) 0.25 mg QHS PO Last administered on 02/20/17 21:35; Admin Dose 0.25 MG; Start 02/16/17 at 21:00 Ferrous Sulfate (Ferrous Sulfate (Ec)) 325 mg DAILY PO Last administered on 12:55; Admin Dose 325 MG; Start 02/16/17 at 09:00 Morphine Sulfate (morphine) 2 mg Q4H PRN IV PAIN Last administered on 02/16/17 04:09; Admin Dose 2 MG; Start 02/16/17 at 04:00 Metoprolol Tartrate (Lopressor) 25 mg BID PO Last administered on 02/20/17 21: 35; Admin Dose 25 MG; Start 02/16/17 at 09:30 Clonidine (Catapres) 0.1 mg Q6H PRN PO SBP > 160; Start 02/16/17 at 09:30 Atorvastatin Calcium (Lipitor) 20 mg HS PO Last administered on 02/20/17 21:33 ; Admin Dose 20 MG; Start 02/16/17 at 21:00 Nitroglycerin (Nitroglycerin (Sl Tab) 0.4 Mg) 1 tab Q5M PRN SL ANGINA; Start at 09:30 Simethicone (Mylicon) 80 mg Q6H PRN PO DISTENSION/GAS/BLOATING Last administered on 02/20/17 18:26; Admin Dose 80 MG; Start 02/17/17 at 10:00 Metoclopramide HCl (Reglan) 10 mg Q6H IV Last administered on 02/21/17 14:30; Admin Dose 10 MG; Start 02/19/17 at 20:30 Sucralfate (Carafate Susp) 1 gm QID PO Last administered on 02/21/17 17:00; Admin Dose 1 GM; Start 02/19/17 at 21:00 Pantoprazole (Protonix Tab) 40 mg BID@,18 PO Last administered on 02/21/17 18:50; Admin Dose 40 MG; Start 02/21/17 at 18:00 Gallo Espinoza DO Feb 21, 2017 19:57
[2017-02-21] MEDS: ATORVASTATIN 20 MG TAB PO SCH (20:50)
[2017-02-21] MEDS: RISPERIDONE 0.25 MG TAB PO SCH (20:50)
== END 2017-02-21 22:00 | disposition home or self-care (01) | DRG 380 ==
LOC: E/R 19:44 → TEL 22:49
PROVIDERS: ADMIT Family Medicine; ATTEND Family Medicine
PROC: 4A023N7 Measurement of Cardiac Sampling and Pressure, Left Heart, Percutaneous Approach (ICD-10-PCS; 2017-02-16)
PROC: B2011ZZ Plain Radiography of Multiple Coronary Arteries using Low Osmolar Contrast (ICD-10-PCS; 2017-02-16)
PROC: 5A1D60Z (ICD-10-PCS; principal; 2017-02-16 08:00)
PROC: 0DB98ZX Excision of Duodenum, Via Natural or Artificial Opening Endoscopic, Diagnostic (ICD-10-PCS; 2017-02-19)
PROC: 0DB68ZX Excision of Stomach, Via Natural or Artificial Opening Endoscopic, Diagnostic (ICD-10-PCS; 2017-02-19)
PROC: 0DB38ZX Excision of Lower Esophagus, Via Natural or Artificial Opening Endoscopic, Diagnostic (ICD-10-PCS; 2017-02-19)
DX: K22.10 Ulcer of esophagus without bleeding (principal); I21.4 Non-ST elevation (NSTEMI) myocardial infarction; E87.2 Acidosis; N18.6 End stage renal disease; I12.0 Hypertensive chronic kidney disease with stage 5 chronic kidney disease or end stage renal disease; R65.10 Systemic inflammatory response syndrome (SIRS) of non-infectious origin without acute organ dysfunction; K82.1 Hydrops of gallbladder; Q60.0 Renal agenesis, unilateral; N39.0 Urinary tract infection, site not specified; Z99.2 Dependence on renal dialysis; E86.0 Dehydration; D50.9 Iron deficiency anemia, unspecified; M85.80 Other specified disorders of bone density and structure, unspecified site; M41.9 Scoliosis, unspecified; B96.1 Klebsiella pneumoniae [K. pneumoniae] as the cause of diseases classified elsewhere; I25.10 Atherosclerotic heart disease of native coronary artery without angina pectoris; K20.8 Other esophagitis; K29.70 Gastritis, unspecified, without bleeding; K29.80 Duodenitis without bleeding
CPT/HCPCS: 36415; 36430; 71010; 71260; 74181; 76536; 76705; 78226; 80048; 80053; 80061; 80076; 81001; 82550; 82553; 82607; 82728; 82746; 82977; 83036; 83540; 83605; 83690; 83735; 84100; 84443; 84484; 85014; 85018; 85025; 85610; 85730; 86850; 86900; 86901; 86920; 87040; 87081; 87086; 88305; 88312; 88313; 90935; 93005; 93306; 93458; 96374; 96375; 96376; A9537; C1887; C9113; J0696; J1170; J1644; J2250; J2270; J2405; J2765; J3010; J7030; J7040; P9016; Q4081; Q9967